=== PATIENT | female | born 1995 | race Caucasian/White ===

== ENCOUNTER → 2017-11-16 14:11 | Outpatient (CLI) | payer OTHER, SELFPAY ==
--- NOTE | 2017-11-16 14:22 | US_ITS ---
STUDY: ULTRASOUND BREAST - LEFT REASON FOR EXAM: Female, 22 years old. Palpable lump left breast. The patient is 29 weeks . TECHNIQUE: Axial and longitudinal images of the LEFT breast were performed with a high resolution ultrasound transducer. COMPARISON: None. FINDINGS: LEFT Breast: The palpable abnormality corresponds to a 1.7 cm x 2.2 cm x 0.8 cm well-defined hypoechoic solid nodule at the 4:00 position of the breast at 3 cm from the nipple. Mild increased echo texture is seen in the midportion of the nodule. This is suggestive of a lymph node. A follow-up sonogram is recommended in 4 months. US/Breast Limited Unilateral IMPRESSION: The palpable abnormality corresponds to a well-defined nodule as described. This has the appearance of a lymph node. A follow-up sonogram in 4 months is recommended. ASSESSMENT CATEGORY: BIRADS Category 3: Probably Benign - Short-Interval Follow-up Suggested. A letter regarding these results will be sent to the patient by the facility within 30 days. Electronically Signed: Efren Walsh MD at 15:01 EST Tel [phone], Service support ,
== END ==
PROVIDERS: Family Provider Family Medicine; PCP Family Medicine; Visit Provider Obstetrics & Gynecology
DX: N63.23 Unspecified lump in the left breast, lower outer quadrant (principal)
CPT/HCPCS: 76642

== ENCOUNTER 2017-12-21 08:20 | Emergency (ER) | payer OTHER, SELFPAY ==
[2017-12-21 08:22] VITALS: BP 117/68; PULSE 89; RESP 17; TEMP 36.8; O2SAT 95; BMI 28.8
[2017-12-21] MEDS: HYDROCODONE/APAP 7.5-325/15ML 15 ML UDC PO (09:34)
[2017-12-21] MEDS: Diphth,Pertuss(Acell),Tet Vac 0.5 ML Vial IM (09:34)
[2017-12-21] MEDS: Lidocaine/Epi/Tetracaine 50 ML 1 APPLIC TOPICAL (09:35)
--- NOTE | 2017-12-21 11:38 | ED.DCSUM_ITS ---
- ER Visit Summary Date of Service: 12/21/17 Chief Complaint: Fall History of Present Illness: The patient is a [address] Cachorro Mcpherson and Dr. Banerjee. She is a at 33 weeks . 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 She suffered a laceration to her face. She reports that she has pain here that 6 out of 10 severity. She denies any back pain. No loss of consciousness. No blow to the abdomen. No abdominal pain. No vaginal bleeding. Normal movement. Physical Examination: Vitals: Stable. Afebrile. Head: 4 cm laceration just below her nose that begins underneath the septum and extends over beneath her left nares and around the left side of her nose. Neck: No vertebral tenderness. Full ROM without difficulty. Cleared by NEXUS criteria. Back: No vertebral tenderness. General: A&O x 3. NAD. Cardiovascular exam: Regular rate and rhythm, no murmur, rub or gallop. Respiratory exam: Chest nontender. No crepitus. Clear to auscultation bilaterally. No wheezes or stridor. Abdominal exam: Soft, nontender, nondistended, normal bowel sounds. No pain in RUQ or LUQ specifically. No peritoneal signs. Gravid uterus. Extremity: Atraumatic. No pain with range of motion. Emergency Department Course and Treatment: heart tones were 160. Patient was treated with Lortab p.o. and Adacel IM. She had her wound anesthetized and repaired she tolerated it well. Treatment Plan: Patient was discussed with Dr. Banerjee. As long as she is asymptomatic and without abdominal pain, vaginal bleeding, normal movement she can follow-up as previously scheduled. Call him if she is having any problems. Instructed to follow-up Dr. Cachorro Mcpherson as needed. Return to the emergency department for any worsening symptoms. Disposition: To home in improved and stable condition. Impression: 1. Laceration to face, 4 7 m, repaired. 2. Second trimester . Procedure note: Wound was cleansed with chlorhexidine soap. Anesthetized with 1% lidocaine without epinephrine. Copiously irrigated with normal saline. Wound was explored there is no foreign material present. It was closed with 5 simple interrupted 5- 0 rapid Vicryl sutures. The patient tolerated it well. This note was generated with Dragon dictation software. It may contain incorrect words, spelling, and punctuation that were not noted in review of the chart prior to signing ED Disposition - Plan for ED Patient: Disposition: Home or Assisted Living Chief Complaint: Other, Pain/Inj Instructions: ED Laceration Facial Sutr Tape Referrals: Cachorro Mcpherson [Primary Care Provider] - As Needed Raoul Banerjee MD [STAFF PHYSICIAN] - Keep Melchor appointment
[2017-12-21 11:46] VITALS: BP 118/67; PULSE 59; RESP 16; O2SAT 98
== END 2017-12-21 11:49 | disposition home or self-care (01) ==
PROVIDERS: Emergency Provider Emergency Medicine; Family Provider Family Medicine; PCP Family Medicine
DX: O26.892 Other specified pregnancy related conditions, second trimester (principal); S01.81XA Laceration without foreign body of other part of head, initial encounter; Z3A.33 33 weeks gestation of pregnancy; W18.30XA Fall on same level, unspecified, initial encounter; Y93.89 Activity, other specified; Y92.89 Other specified places as the place of occurrence of the external cause; Y99.8 Other external cause status
CPT/HCPCS: 12013; 90715; 99283

== ENCOUNTER 2018-01-14 17:45 | Outpatient (CLI) | payer OTHER, SELFPAY ==
[2018-01-14 18:03] VITALS: BMI 29.0
[2018-01-14 18:34] LABS: ROM Internal Control Test YES-OK TO RESULT pt. (Internal QC); ROM Patient Test Negative (Negative)
--- NOTE | 2018-01-15 07:52 | OB.TRI.NOTE ---
History of Present Illness Date of Service: 01/14/18 Was patient seen by the physician?: No Reason For Visit: RULE OUT LABOR Date of Service: 01/14/18 Final LUIS FERNANDO: 02/01/18 Final LUIS FERNANDO Source: US <20 weeks Gestational age: 37 Weeks and 4 Days History of Present Illness: Reports two episodes of possible leakage of fluid from the vagina Home Medications Medication Instructions Recorded Vits [Prenatabs FA] 1 tablet PO DAILY 12/21/17 Allergies No Known Allergies Allergy (Verified 12/21/17 08:21) Physical Exam General: Alert, Oriented x3, Cooperative, No apparent distress Cardiovascular: Regular rate, Regular Rhythm Lungs: Clear to auscultation, Normal air movement Abdomen: Soft, Non Tender, Non-Distended, Gravid, Appropriate for Gestational Age Extremities:: No edema Estimated gestational size: Appropriate for gestational size Presentation: Cephalic Cervix Dilation (cm): 3 Station: -3 Effacement (%): 50 NST - FHR Rate Baby A Baseline: 130s Variability:: Moderate Accelerations:: 15 x 15 Decelerations:: None NST Reactive:: Yes, Appropriate for gestational age FHR Category:: Category I Uterine Activity:: rare Impression/Plan ROM + testing negative and no signs of leaking amniotic fluid. Cervix unchanged from office exam. Will followup in office.
== END 2018-01-14 18:45 | disposition home or self-care (01) ==
LOC: WPOUT 17:56 → WP 01-16 12:43
PROVIDERS: Family Provider Family Medicine; PCP Family Medicine; Visit Provider Obstetrics & Gynecology
DX: O26.892 Other specified pregnancy related conditions, second trimester (principal); Z3A.20 20 weeks gestation of pregnancy
CPT/HCPCS: 59025; 59050; 84112; 99218; G0378

== ENCOUNTER 2018-01-26 07:07 | Inpatient (IN) | payer OTHER, SELFPAY ==
[2018-01-26] VITALS (18 sets, daily range): BP systolic 97–150; BP diastolic 49–79; PULSE 79–114; RESP 16–20; TEMP 36–36.6; O2SAT 96–100; BMI 29.7
[2018-01-26] MEDS: Lactated Ringers 1,000 ML 50 ML IV ×2 (07:50→08:54)
[2018-01-26 08:15] LABS: Hematocrit 32.5 % (37-47); Mean Corp Hgb Conc 33.8 g/gl (32-36); Mean Corpuscular Hgb 28.5 pg (27.0-32.0); Mean Corpuscular Volume 84.2 fL (81-99); Mean Platelet Vol. 11.7 fl (6.2-12.0); Platelet Count 205 K/mm3 (150-450); RBC Distribution Width CV 14.3 % (11.6-14.6); RBC Distribution Width SD 42.6 fl (35.1-43.9); Red Blood Count 3.86 M/mm3 (4.2-5.4); White Blood Count 11.9 K/mm3 (4.4-11.0)
[2018-01-26 08:18] LABS: Scan Indicated on CBC? Y/N NO
[2018-01-26] MEDS: Oxytocin 30 units/NS 500 ml 30 UNITS/500 ML IV.SOLN IV (08:59)
[2018-01-26] MEDS: Cefazolin 2 GM in 0.9% Normal Saline 100 ML IV (10:49)
[2018-01-26] MEDS: Sodium Citrate/Citric Acid 30 ML UDC PO (10:50)
[2018-01-26] MEDS: Ketorolac 30 MG/ML Syringe IV ×3 (11:30→23:47)
--- NOTE | 2018-01-26 12:20 | PCM.OB.CSR ---
- Problem List (1) Labor presentation, breech Status: Acute Qualifiers: Fetus number: single or unspecified fetus Qualified Code(s): O32.1XX0 - Maternal care for breech presentation, not applicable or unspecified Delivery Classification: MAINOR Final LUIS FERNANDO: 02/02/18 Final LUIS FERNANDO Source: US <20 weeks Gestational age: 39 Weeks and 0 Days Indications for : Breech Description of Procedure: Presented for induction of labor at 39 weeks. Once at 5 cm determined to be in breech presentation. Primary low transverse section performed without complication. Normal appearing uterus, ovaries, and fallopian tubes. Live female in complete breech presentation. weight 7lb2oz. Apgars 8/9. Amniotic Membrane Rupture Type: Artificial Amniotic Fluid Description: Clear Placenta Disposition: [facility] Drain: So to straight drain Fluids Replaced: 1500cc Cord Entanglement: None Cord Vessel Description: 3 Vessels Esitmated Blood Loss (ml): 400cc Infant Gender: Female (1 minute): 8 (5 minute): 9 Delayed cord clamping: Yes Pre-op Antibiotic Given: Ancef 2 grams IV x1 Pt instructed on risks of surgery: Bleeding, Infection, Injury to surrounding structure(s) including bowel and bladder Complications: None - Admit VTE Documentation VTE Present on Admission: No VTE Mechan Device Prophylaxis: SCD's VTE Pharm Prophylaxis ordered?: No
--- NOTE | 2018-01-26 15:15 | CPS ---
room is full of people, nursing to start
[2018-01-26] MEDS: Cefazolin 1 GM/50 ML BAG IV (18:53)
[2018-01-26] MEDS: Lactated Ringers 1,000 ML 100 ML IV ×2 (19:30)
[2018-01-27] VITALS (11 sets, daily range): BP systolic 102–107; BP diastolic 47–64; PULSE 82–101; RESP 16–18; TEMP 36.5–36.7; O2SAT 95–99
[2018-01-27] MEDS: Cefazolin 1 GM/50 ML BAG IV (02:59)
[2018-01-27] MEDS: Lactated Ringers 1,000 ML 100 ML IV (05:39)
[2018-01-27] MEDS: Ketorolac 30 MG/ML Syringe IV ×3 (05:41→18:10)
[2018-01-27 06:54] LABS: Hematocrit 27.5 % (37-47); Hemoglobin 9.2 g/dl (12.0-15.0); Mean Corp Hgb Conc 33.5 g/gl (32-36); Mean Corpuscular Hgb 28.1 pg (27.0-32.0); Mean Corpuscular Volume 84.1 fL (81-99); Mean Platelet Vol. 10.7 fl (6.2-12.0); Platelet Count 184 K/mm3 (150-450); RBC Distribution Width CV 14.7 % (11.6-14.6); RBC Distribution Width SD 45.2 fl (35.1-43.9); Red Blood Count 3.27 M/mm3 (4.2-5.4); White Blood Count 11.7 K/mm3 (4.4-11.0)
[2018-01-27 06:57] LABS: Scan Indicated on CBC? Y/N NO
--- NOTE | 2018-01-27 08:09 | PCM.PN.OB ---
Patient Problems: Active and Suspected Problems Labor presentation, breech (Acute) Subjective: Some incisional soreness. Bleeding light. Tolerating PO well. So in place. Objective: Afeb VSS Hgb appropriate on POD#1. - Physical Exam General: Alert, Oriented x3, Cooperative, No apparent distress Lungs: Clear to auscultation, Normal air movement Cardiovascular: Regular rate, Regular Rhythm Abdomen: Soft, Non Tender, Non-Distended, - - Incision dressing dry. Extremities: No edema, No Calf Tenderness Skin: No rashes Neurological: Neuro grossly intact Psych/Mental Status: Normal Affect Comment: Lochia light Vital Signs Temp Pulse Resp BP Pulse Ox 98.0 F 90 16 102/52 L 99 01/27/18 03:00 01/27/18 06:00 01/27/18 06:00 01/27/18 03:00 01/27/18 06:00 Oxygen Delivery Method Room Air Weight: 179 lb 0.246 oz Body Mass Index (BMI) 29.7 Intake and Output for Last 24 Hours 01/25/18 01/26/18 01/27/18 23:59 23:59 23:59 Intake Total 2708 / 2708 2443 / 2443 Output Total 1920 / 1920 2150 / 2150 Balance 788 / 788 293 / 293 Laboratory Tests Past 24 Hrs 01/26/18 01/26/18 01/27/18 07:50 07:50 06:30 WBC 11.9 H 11.7 H RBC 3.86 L 3.27 L Hgb 11.0 L 9.2 L Hct 32.5 L 27.5 L MCV 84.2 84.1 MCH 28.5 28.1 MCHC 33.8 33.5 RDW 14.3 14.7 H RDW Differential 42.6 45.2 H Plt Count 205 184 MPV 11.7 10.7 Blood Type A POSITIVE Antibody Screen NEGATIVE Medical Necessity - Tobacco Use Smoking Status: Former smoker Assessment/Plan Active and Suspected Problems Labor presentation, breech (Acute) Doing well on POD#1. Continue routine PO care.
--- NOTE | 2018-01-27 08:20 | DCINST_ITS ---
Discharge Diet: No Restrictions Discharge Activity: Return to Normal Activity, May Not Drive, May not drive while taking narcotic pain medications., May Shower Return to work on:: 03/27/18 May resume sexual activity in: 4-6 weeks Call your doctor if your incision/area has: Sudden Increased Bleeding, Increased Pain/ Swelling, Increased Redness, Foul Smelling Discharge, Swelling at the incision site Call your doctor if you observe: Fever of 101 or Higher, Inability to urinate, Inability to have a bowel movement, Using more than one pad per hour, Shortness of breath, Chest pain, Calf discomfort, Uncontrolled pain Remove Dressing in (days):: 2 Cleanse incision/area with: Soap & Water Additional Instructions: If you experience any of the following, contact your healthcare provider. * Bleeding that soaks a pad every hour for 2 hours * Fever 100.4 or higher * Unrelieved incision or abdominal pain * Swelling, redness, discharge or bleeding from your incision or episiotomy site * Your incision begins to separate * Problems urinating (including inability to urinate or burning while urinating) . * Visual changes * Severe headache * Flu-like symptoms * Pain or redness in one of both of your breasts * Pain, warmth, tenderness or swelling in your legs, especially the calf area * Frequent nausea and vomiting * Symptoms of depression or anxiety If you experience any of the following, call 911 or go to the nearest Emergency Room. * Chest pain * Problems breathing * Seizure activity * Partial or complete paralysis of a body part, slurred speech, weakness or drooping of the face, or a sudden inability to walk or hold your balance Allergies/Adverse Reactions: Allergies No Known Allergies Allergy (Verified 01/26/18 08:07) Medications to take at Discharge Vits [Prenatabs FA ] 1 tablet PO DAILY 12/21/17 Ibuprofen [Motrin] 800 mg PO TID PRN PRN #30 tab 01/27/18 Oxycodone [Oxyir] 5 - 10 mg PO Q4H PRN PRN 7 Days #30 tab 01/27/18 The following prescriptions were given: Oxycodone [Oxyir] 5 - 10 mg PO Q4H PRN PRN 7 Days #30 tab PRN Reason: Mod-Severe Pain () Ibuprofen [Motrin] 800 mg PO TID PRN PRN #30 tab PRN Reason: pain or cramping Follow-Up: Call to make an appointment with your doctor for an incision check in 1-2 weeks. You will also need a 6 week post- follow up appointment. Please Follow Up With: Raoul Banerjee MD When: one week Primary Care Physician: Cachorro Mcpherson [Primary Care Provider] - Proposed Discharge Date: 01/28/18
--- NOTE | 2018-01-27 08:35 | OP.PCM_ITS ---
Problem List (1) Labor presentation, breech Status: Acute Qualifiers: Fetus number: single or unspecified fetus Qualified Code(s): O32.1XX0 - Maternal care for breech presentation, not applicable or unspecified Report of Operation Date of Procedure: 01/26/18 Pre-Operative Diagnosis: Breech presentation in labor Post-Operative Diagnosis: same Surgery/Procedure Performed:: Primary Low Transverse Section Description of Surgical Findings:: At 5 cm dilated with fetus in complete breech presentation. Normal appearing uterus, fallopian tubes, ovaries. Baby in right sacrum anterior position. weight 7lb2oz. Apgars 8/9. Normal appearing placenta. Amniotic fluid clear. chest painting and sealing supervisor: Lay Kolb Type of Anesthesia:: Spinal Anesthesiologist: Anne Black Specimen's removed: none Drains: arriaga Estimated Blood Loss (mL): 400 Fluids Replaced: 1500cc LR Description of Procedure: Beth was taken to the OR with IV running. Indications, risks, and postoperative expectations were discussed. heart rate and heart rate pattern normal prior to delivery. She was given two grams of Ancef intravenously for surgical prophylaxis. SCDs were in place and operational from surgery through recovery. Spinal anesthesia was given without complication. A arriaga catheter was placed. She was prepped and draped in the supine position with a leftward tilt. Once anesthesia was found to be adequate a Pfannesteil incision was made about 2 cm above the level of the symphysis pubis. The underlying subcutaneous tissue was dissected to the level of the fascia with sharp and blunt dissection. The fascia was then incised in the midline and this incision was extended bilaterally using the willoughby scissors. The rectus muscles were then dissected off the fascia. The rectus muscles were then in the midline, the peritoneum identified and entered bluntly. Once entered the peritoneal defect was extended using blunt retraction. A bladder blade was then placed. A bladder flap was then created and the bladder blade replaced. The lower uterine segment was then incised and once the cavity entered this defect was extended using blunt lateral and superior traction. The breech was then delivered followed by the body, shoulders, and then verteex. The baby's nose and mouth were then suctioned with a bulb suction. Delayed cord clamping was employed. The baby was dried and a vigorous cry was noted within the first minute. The cord was then clamped and cut. The baby was then handed to the waiting nursing staff for evaluation. The placenta was then delivered manually. The uterus was exteriorized and cleared of all clot and membranes. The uterine incision was then repaired in two layers with #1 Vicryl suture. The posterior cul de sac and gutters were cleared of all blood and fluid. The uterus was returned to the abdomen. The uterine incision was reinspected and found to be hemostatic. The peritoneum was closed with a running stitch of 2-0 Vicryl. The rectus muscles reapproximated with interrupted sutures of 0-Vicryl. The fascia was closed with a running stitch of #1 Stratofix suture. The subcutaneous tissue was closed with 2-0 Vicryl. The skin was closed with a subcuticular stitch of 4-0 Monocryl. Sponge, lap, needle, and instrument counts were correct. Beth was taken to the recovery room in stable condition. Grafts/Implants Used: none - Complications none - Admit VTE Documentation VTE Present on Admission: No VTE Mechan Device Prophylaxis: SCD's VTE Pharm Prophylaxis ordered?: No
--- NOTE | 2018-01-27 12:44 | PCM.DC.SUM ---
Discharge Date and Diagnosis - Problem List Patient Problems: Active and Suspected Problems Labor presentation, breech (Acute) Date of Admission: 01/26/18 Date of Discharge: 01/28/18 - Primary Discharge Diagnosis Active and Suspected Problems Labor presentation, breech (Acute), S/P primary low transverse section Hospital Course and Treatment Consultations 01/26/18 07:21 Consult: Anesthesia Routine Comment: Reason For Exam: LABOR Operations: - - Low transverse section Procedures: - - spinal anesthesia Summary of Care Provided: The patient is a 22 year old F [presented for elective induction of labor. At 5 cm dilated determined that fetus was in breech presentation. After counselling decision made for delivery by section. This was perfomed without complication. Post operative course was unremarkable. Discharged home on POD#2.] Discharge Diet: No Restrictions Discharge Activity: Return to Normal Activity, May Not Drive, May not drive while taking narcotic pain medications., May Shower Return to work on:: 03/27/18 May resume sexual activity in: 4-6 weeks Call your doctor if your incision/area has: Sudden Increased Bleeding, Increased Pain/ Swelling, Increased Redness, Foul Smelling Discharge, Swelling at the incision site Call your doctor if you observe: Fever of 101 or Higher, Inability to urinate, Inability to have a bowel movement, Using more than one pad per hour, Shortness of breath, Chest pain, Calf discomfort, Uncontrolled pain Remove Dressing in (days):: 2 Cleanse incision/area with: Soap & Water Home Medications: Medications to take at Discharge Vits [Prenatabs FA ] 1 tablet PO DAILY 12/21/17 Ibuprofen [Motrin] 800 mg PO TID PRN PRN #30 tab 01/27/18 Oxycodone [Oxyir] 5 - 10 mg PO Q4H PRN PRN 7 Days #30 tab 01/27/18 Following Prescrptions Were Given to Patient: Oxycodone [Oxyir] 5 - 10 mg PO Q4H PRN PRN 7 Days #30 tab PRN Reason: Mod-Severe Pain (4-1010) Ibuprofen [Motrin] 800 mg PO TID PRN PRN #30 tab PRN Reason: pain or cramping Primary Care Physician: Cachorro Mcpherson [Primary Care Provider] - Please Follow Up With: Raoul Banerjee MD When: one week Disposition: Home Minutes spent on discharge:: 15 Patient Condition:: Good Medical Necessity - Tobacco Use Smoking Status: Former smoker Meaningful Use Info Meaningful Use Diagnoses (Choose all that apply): None applicable
[2018-01-27] MEDS: Prenatal Vits Tablet 1 TABLET PO (14:26)
[2018-01-27] MEDS: oxyCODONE 5 MG Tablet PO ×3 (14:26→21:28)
[2018-01-27] MEDS: 0.9% Saline Lock 10 ML Syringe IV (18:10)
[2018-01-27] MEDS: Senna/Docusate Sodium 1 Tablet PO (18:13)
[2018-01-28] MEDS: Ketorolac 30 MG/ML Syringe IV (00:55)
[2018-01-28] MEDS: 0.9% Saline Lock 10 ML Syringe IV ×2 (00:55→07:06)
[2018-01-28] MEDS: Ibuprofen 600 MG Tablet PO ×3 (07:13→22:22)
[2018-01-28 08:03] VITALS: BP 118/71; PULSE 80; RESP 18; TEMP 36.4; O2SAT 97
--- NOTE | 2018-01-28 10:41 | PN.OBGYN_ITS ---
Patient Problems: Active and Suspected Problems Labor presentation, breech (Acute) Subjective: Postoperative day #2 status post primary Patient without complaints. Tolerating diet well. Positive flatus. Breast- feeding going well. Considering discharge home later today if breast-feeding continues to go well. - Physical Exam Vital Signs AF, VSS Temp Pulse Resp BP Pulse Ox 97.6 F L 80 18 118/71 97 01/28/18 08:03 01/28/18 08:03 01/28/18 08:03 01/28/18 08:03 01/28/18 08:03 Oxygen Delivery Method Room Air Weight: 179 lb 0.246 oz Body Mass Index (BMI) 29.7 Intake and Output for Last 24 Hours 01/26/18 01/27/18 01/28/18 23:59 23:59 23:59 Intake Total 2708 / 2708 2776 / 2776 Output Total 1920 / 1920 4100 / 4100 Balance 788 / 788 -1324 / -1324 Wound is clean, and intact with no new drainage. Good urine output. Medical Necessity - Tobacco Use Smoking Status: Former smoker Assessment/Plan Active and Suspected Problems Labor presentation, breech (Acute) Doing well postoperative day #2 status post primary . Will release to home later today. Routine instructions given. Follow-up in 1-[address] Banerjee.
[2018-01-28] MEDS: Prenatal Vits Tablet 1 TABLET PO (11:00)
[2018-01-28] MEDS: Senna/Docusate Sodium 1 Tablet PO (13:41)
[2018-01-28 14:00] VITALS: BP 113/68; PULSE 82; RESP 18; TEMP 36; O2SAT 97
[2018-01-28] MEDS: oxyCODONE 5 MG Tablet PO ×2 (18:57→23:17)
[2018-01-28 20:10] VITALS: BP 113/68; PULSE 82; RESP 16; TEMP 36.6; O2SAT 97
[2018-01-29 02:03] VITALS: BP 113/58; PULSE 70; RESP 18; TEMP 36; O2SAT 100
[2018-01-29] MEDS: Ibuprofen 600 MG Tablet PO ×2 (05:25→11:39)
[2018-01-29 07:50] VITALS: BP 125/57; PULSE 80; RESP 16; TEMP 36.6; O2SAT 98
--- NOTE | 2018-01-29 09:38 | PCM.PN.OB ---
Patient Problems: Active and Suspected Problems Labor presentation, breech (Acute) Subjective: Patient without complaints. Doing well. Decided to stay another day. - Physical Exam Vital Signs Temp Pulse Resp BP Pulse Ox 97.9 F 80 16 125/57 H 98 01/29/18 07:50 01/29/18 07:50 01/29/18 07:50 01/29/18 07:50 01/29/18 07:50 Oxygen Delivery Method Room Air Weight: 179 lb 0.246 oz Body Mass Index (BMI) 29.7 Intake and Output for Last 24 Hours 01/27/18 01/28/18 01/29/18 23:59 23:59 23:59 Intake Total 2776 / 2776 Output Total 4100 / 4100 Balance -1324 / -1324 Medical Necessity - Tobacco Use Smoking Status: Former smoker Assessment/Plan Active and Suspected Problems Labor presentation, breech (Acute) Postoperative day #3 Doing well. Will release to home with routine instructions.
[2018-01-29] MEDS: Prenatal Vits Tablet 1 TABLET PO (11:10)
== END 2018-01-29 12:05 | disposition home or self-care (01) | DRG 766 ==
PROVIDERS: Admitting Provider Obstetrics & Gynecology; Family Provider Family Medicine; PCP Family Medicine; Visit Provider Obstetrics & Gynecology
DX: O32.1XX0 Maternal care for breech presentation, not applicable or unspecified (principal); Z3A.39 39 weeks gestation of pregnancy; Z37.0 Single live birth
CPT/HCPCS: 59025; 59050; 85027; 86850; 86900; 99218; J7120; A4216; G0378; J2405

== ENCOUNTER 2020-08-05 13:45 | Inpatient (IN) | payer MEDICAID, SELFPAY ==
[2018-01-26 07:59] VITALS: BMI 29.7
[2020-08-05] VITALS (46 sets, daily range): BP systolic 92–208; BP diastolic 6–163; PULSE 85–120; RESP 18; TEMP 36.4–37.6; O2SAT 93–100; BMI 31.9
[2020-08-05 12:14] LABS: ROM Internal Control Test YES-OK TO RESULT pt. (Internal QC); ROM Patient Test Negative (Negative)
[2020-08-05] MEDS: Lactated Ringers 1,000 ML 50 ML IV (14:10)
[2020-08-05 14:36] LABS: Absolute Lymphocyte Count 1.06 X10^3/uL (0.83-4.51); Absolute Neutrophil Count 12.5 X10^3/uL (2.0-7.7); Basophil# 0.02 X10^3/uL; Basophil% 0.1 % (0-1); Eosinophil# 0.01 X10^3/uL; Eosinophils% 0.1 % (0-5); Hemoglobin 10.4 g/dL (12.0-15.0); Lymphocyte # 1.06 X10^3/ul (4.0); Lymphocyte % 7.3 % (19-41); Mean Corp Hgb Conc 32.5 g/dL (32-36); Mean Corpuscular Hgb 26.9 pg (27.0-32.0); Mean Corpuscular Volume 82.9 fL (81-99); Mean Platelet Vol. 11.7 fl (6.2-12.0); Monocyte# 0.88 X10^3/uL; NRBC Flagged by Analyzer 0 % (0-5); Neutrophil # 12.52 X10^3/uL (2.7-7.7); Neutrophil % 85.9 % (47-70); Platelet Count 254 K/mm3 (150-450); RBC Distribution Width CV 14.3 % (11.6-14.6); RBC Distribution Width SD 42.7 fl (35.1-43.9); Red Blood Count 3.86 M/mm3 (4.2-5.4); White Blood Count 14.6 K/mm3 (4.4-11.0)
[2020-08-05] MEDS: Lactated Ringers 500 ML 999 ML IV (15:00)
--- NOTE | 2020-08-05 15:18 | PCM.HP.OB ---
History Date of Admission: 08/05/20 Final LUIS FERNANDO: 08/14/20 Final LUIS FERNANDO Source: US <20 weeks Gestational age: 38 Weeks and 5 Days History of this : This is a 24 year-old, G [], P [], at 38 weeks gestational age. Medical History: Medical History (This Medical Record has been edited. Action required.) Anxiety F41.9 Surgical History: Surgical History (This Medical Record has been edited. Action required.) Previous section Z98.891 Allergies No Known Allergies Allergy (Verified 08/05/20 11:49) Home Medications: Home Medications Vits [Prenatabs FA ] 1 tablet PO DAILY 12/21/17 Ferrous Sulfate [Iron] 08/05/20 Smoking Status: Former smoker Alcohol: None Number of Fetus(es): 1 NST - FHR Rate Baby A Baseline: 130 Variability:: Moderate Accelerations:: 15 x 15 Decelerations:: Variable Uterine Activity:: Q 3-4 minutes History Past Pregnancies: Past Pregnancies Delivery Date Name GA/ Weeks Outcome Route Wt Sex Labor Length Anesthesia Delivery Location Provider FOB Labs: See [facility] H&P Physical Exam Vitals: Vital Signs Temp Pulse BP 98.6 F 90 110/74 08/05/20 11:39 08/05/20 15:13 08/05/20 15:13 General: Alert, Oriented x3 Abdomen: Soft, Non Tender, Non-Distended, Gravid Neurological: Cranial nerves II-XII grossly intact GENETIC COUNSELOR: Normal external genitalia Estimated gestational size: Appropriate for gestational size Presentation: Cephalic Cervix Dilation (cm): 5 - AROM clear fluid Station: -1 Effacement (%): 90 Assessment/Plan This is a 24 year-old, at 38&5 weeks gestational age. Admit to L&D TOLAC - patient counseled extensively during the & risks reviewed again today and she wishes to proceed. Patient declines a repeat . Pain - epidural COVID negative GBS negative Routine care EFW - less than 4500g, patient with adequate pelvis
[2020-08-05 15:21] LABS: Bedside Glucose 85 mg/dL (70-110)
[2020-08-05] MEDS: fentaNYL-bupivacaine (epidural) 100 ML BAG EPIDURAL (15:29)
--- NOTE | 2020-08-05 16:35 | OP.PCM_ITS ---
Vaginal Delivery Maternal Presentation: Active Labor Method of Induction: Amniotomy Amniotic Membrane Rupture Type: Artificial Amniotic Fluid Description: Clear Final LUIS FERNANDO: 08/14/20 Gestational age: 38 Weeks and 5 Days Date of Procedure: 08/05/20 Pre-Operative Diagnosis: (1) Labor (2) Desires TOLAC Post-Operative Diagnosis: (1) Labor (2) Successful TOLAC Surgery/ Procedure Performed: Spontaneous Vaginal Delivery Type of Anesthesia: Epidural Description of Procedure: Patient prepped & draped when C/C/+3. She pushed to deliver head. head gently guided to allow delivery of anterior & posterior shoulders. No excess traction placed on the head. Body delivered & infant placed on maternal abdomen. 3VC clamped & cut in delayed fashion. Placenta delivered with gentle traction. Good uterine tone obtained. Presentation: MARIA ANTONIA Placental Delivery Description: Expressed Placenta Disposition: [facility] Cord Vessel Description: 3 Vessels Cord Entanglement: None Estimated Blood Loss: 400ml Infant A gender: Female - [place] (1 minute): 8 (5 minute): 9 Episiotomy Description: None Laceration: None Medications given after delivery: IV Pitocin Complications: None
[2020-08-05] MEDS: Methylergonovine 0.2 MG/ML Ampul IM (17:20)
[2020-08-05] MEDS: Oxytocin 30 units/NS 500 ml 30 UNITS/500 ML IV.SOLN 334 UNITS IV (17:20)
[2020-08-05] MEDS: Ondansetron 4 MG/2 ML Vial IV (18:17)
[2020-08-05 18:20] LABS: Bedside Glucose 98 mg/dL (70-110)
--- NOTE | 2020-08-05 20:02 | NURSING ---
attempted to flush SL but unable to flush. Saline lock left intact.
[2020-08-05] MEDS: Ibuprofen 600 MG Tablet PO (21:21)
[2020-08-05] MEDS: Acetaminophen 500 MG Tablet 1000 MG PO (22:06)
--- NOTE | 2020-08-05 22:56 | NURSING ---
pt complaining of cramping pain 03/12 after , pt requested motrin, pt medicated with motrin. An hour later pt stated pain was not any better pt offered tylenol and heating pad, pt medicated with tylenol and given heating pad. Encouraged pt to get up to pee, multiple attempts to get pt out of bed with assistance of nurse to go to bathroom. Pt stated it was too painful to get up, pt offered bed tarango, pt stated she would use a bedpan. Pt placed on bedpan and encouraged to pee, pt advised to relax as much as possible to pee, pt could not pee. This nurse then suggested a straight cath and pt stated she was ok with it, straight cathed pt for an output of 2000ml, pt stated she had no more pain and was then able to get up and walk around room. Pt then encouraged to attempt to pee at least once an hour even if she does not feel the urge to pee. Pt stated she understood.
[2020-08-06] VITALS: BP 97/41; PULSE 74; RESP 16; TEMP 36.5
[2020-08-06 04:00] VITALS: BP 108/45; PULSE 92; RESP 16; TEMP 36.6
[2020-08-06 06:00] LABS: Bedside Glucose 101 mg/dL (70-110)
--- NOTE | 2020-08-06 08:43 | PN.OBGYN_ITS ---
Subjective: Doing well. Ambulating and voiding without difficulty. Tolerating a regular diet without nausea or vomiting. She denies lightheadedness, dizziness, chest pain, shortness of breath, leg pain. Lochia normal. Breast-feeding going well. She desires to go home today. - Physical Exam Vitals/I&O's: Vital Signs Temp Pulse Resp BP Pulse Ox 98 F 92 16 108/45 L 100 08/06/20 04:00 08/06/20 04:00 08/06/20 04:00 08/06/20 04:00 08/05/20 16:35 Oxygen Delivery Method Room Air Weight: 186 lb Body Mass Index (BMI) 31.9 Intake and Output for Last 24 Hours 08/04/20 08/05/20 08/06/20 23:59 23:59 23:59 Intake Total 2321.60 / 2321.60 Output Total 2500 / 2500 400 / 400 Balance -178.40 / -178.40 -400 / -400 General: Alert, No apparent distress HEENT: Atraumatic Abdomen: Non-Distended Extremities: No edema Neurological: Neuro grossly intact Psych/Mental Status: Normal Affect, Appropriate Laboratory Results 08/05/20 11:45: Vag Amniotic Fld Detect Negative 08/05/20 14:10: WBC 14.6 H, RBC 3.86 L, Hgb 10.4 L, Hct 32.0 L, MCV 82.9, MCH 26.9 L, MCHC 32.5, RDW Std Deviation 42.7, RDW Coeff of Kaci 14.3, Plt Count 254, MPV 11.7, Immature Gran % (Auto) 0.600, Neut % (Auto) 85.9 H, Lymph % (Auto) 7.3 L, Cowley % (Auto) 6.0, Eos % (Auto) 0.1, Baso % (Auto) 0.1, Absolute Neuts (auto) 12.5 H, Absolute Lymphs (auto) 1.06, Nucleated RBC % 0 08/05/20 14:10: Blood Type A POSITIVE, Antibody Screen NEGATIVE 08/05/20 15:14: POC Glucose 85 08/05/20 18:13: POC Glucose 98 08/06/20 05:34: POC Glucose 101 Current Medications Acetaminophen (Acetaminophen 500 Mg Tablet) 1,000 mg PO Q8H PRN PRN PRN Reason: Pain Score 1-3 Last Admin: 08/05/20 22:06 Dose: 1,000 mg Documented by: Bisacodyl (Bisacodyl 10 Mg Suppository) 10 mg RECTAL UD PRN PRN Reason: If no BM Dibucaine (Dibucaine 30 Gm Tube) 1 applic TOPICAL TID PRN PRN; Protocol PRN Reason: Discomfort Hydrocortisone (Hydrocortisone 2.5% Crm) 1 applic TOPICAL TID PRN PRN; Protocol PRN Reason: Discomfort Ibuprofen (Ibuprofen 600 Mg Tablet) 600 mg PO Q6H PRN PRN PRN Reason: Pain Score 1-3 Last Admin: 08/05/20 21:21 Dose: 600 mg Documented by: Methylergonovine Maleate (Methylergonovine 0.2 Mg/Ml Ampul) 0.2 mg IM X1 PRN PRN Reason: Excess bleeding/uterine atony Last Admin: 08/05/20 17:20 Dose: 0.2 mg Documented by: Ondansetron HCl (Ondansetron 4 Mg/2 Ml Vial) 4 mg IV Q4H PRN PRN PRN Reason: Nausea Oxycodone HCl (Oxycodone 5 Mg Tablet) 5 - 10 mg PO Q4H PRN PRN PRN Reason: Pain Score 4-10 Senna/Docusate Sodium (Senna/Docusate Sodium 1 Tablet) 1 - 2 tablet PO DAILY PRN PRN PRN Reason: Constipation Simethicone (Simethicone 80 Mg Tablet) 80 mg PO PCHS PRN PRN Reason: Indigestion/Stomach pain Sodium Chloride (0.9% Saline Lock 10 Ml Syringe) 5 - 15 ml IV UD PRN PRN Reason: SALINE FLUSH Medical Necessity - Tobacco Use Smoking Status: Former smoker Assessment/Plan Patient is day 1 from a vaginal after prior . She is doing well. She desires to go home today. Meeting all milestones for discharge. Discharge instructions reviewed.
--- NOTE | 2020-08-06 08:44 | DCINST_ITS ---
Discharge Diet: No Restrictions Discharge Activity: May Shower, May Take a Tub Bath May resume sexual activity in: 6 weeks Ice area for (Minutes): 15 Weight Bearing Status: Weight bearing as tolerated Call your doctor if you observe: Fever of 101 or Higher, Inability to urinate, Inability to have a bowel movement, Using more than one pad per hour, Shortness of breath, Dizziness, Fainting spells, Swelling in the ankles, Chest pain, In creased palpitations (irregular heartbeat), Calf discomfort, Uncontrolled pain Additional Instructions: If you experience any of the following, contact your healthcare provider. * Bleeding that soaks a pad every hour for 2 hours * Fever 100.4 or higher * Unrelieved incision or abdominal pain * Swelling, redness, discharge or bleeding from your incision or episiotomy site * Your incision begins to separate * Problems urinating (including inability to urinate or burning while urinating). * Visual changes * Severe headache * Flu-like symptoms * Pain or redness in one of both of your breasts * Pain, warmth, tenderness or swelling in your legs, especially the calf area * Frequent nausea and vomiting * Symptoms of depression or anxiety If you experience any of the following, call 911 or go to the nearest Emergency Room. * Chest pain * Problems breathing * Seizure activity * Partial or complete paralysis of a body part, slurred speech, weakness or drooping of the face, or a sudden inability to walk or hold your balance Allergies/Adverse Reactions: Allergies No Known Allergies Allergy (Verified 08/05/20 11:49) Medications to take at Discharge Vits [Prenatabs FA ] 1 tablet PO DAILY 12/21/17 Ferrous Sulfate [Iron] 08/05/20 When: 1-2 weeks for virtual visit. 6 weeks for visit. Primary Care Physician: Care Physician,No Primary [Primary Care Provider] - Test Results: Test results from this visit will be discussed in further detail at your follow- up appointment, if applicable.
--- NOTE | 2020-08-06 08:44 | PCM.DCVAG ---
Discharge Diet: No Restrictions Discharge Activity: May Shower, May Take a Tub Bath May resume sexual activity in: 6 weeks Ice area for (Minutes): 15 Weight Bearing Status: Weight bearing as tolerated Call your doctor if you observe: Fever of 101 or Higher, Inability to urinate, Inability to have a bowel movement, Using more than one pad per hour, Shortness of breath, Dizziness, Fainting spells, Swelling in the ankles, Chest pain, Increased palpitations (irregular heartbeat), Calf discomfort, Uncontrolled pain Additional Instructions: If you experience any of the following, contact your healthcare provider. Bleeding that soaks a pad every hour for 2 hours Fever 100.4 or higher Unrelieved incision or abdominal pain Swelling, redness, discharge or bleeding from your incision or episiotomy site Your incision begins to separate Problems urinating (including inability to urinate or burning while urinating). Visual changes Severe headache Flu-like symptoms Pain or redness in one of both of your breasts Pain, warmth, tenderness or swelling in your legs, especially the calf area Frequent nausea and vomiting Symptoms of depression or anxiety If you experience any of the following, call 911 or go to the nearest Emergency Room. Chest pain Problems breathing Seizure activity Partial or complete paralysis of a body part, slurred speech, weakness or drooping of the face, or a sudden inability to walk or hold your balance Allergies/Adverse Reactions: Allergies No Known Allergies Allergy (Verified 08/05/20 11:49) Medications to take at Discharge Vits [Prenatabs FA ] 1 tablet PO DAILY 12/21/17 Ferrous Sulfate [Iron] 08/05/20 When: 1-2 weeks for virtual visit. 6 weeks for visit. Primary Care Physician: Care Physician,No Primary [Primary Care Provider] - Test Results: Test results from this visit will be discussed in further detail at your follow-up appointment, if applicable.
[2020-08-06 08:45] VITALS: BP 114/36; PULSE 82; RESP 16; TEMP 36.6
[2020-08-06 13:00] VITALS: BP 96/56; PULSE 89; RESP 15; TEMP 36.2
[2020-08-06] MEDS: Ibuprofen 600 MG Tablet PO (13:06)
--- NOTE | 2020-08-06 13:55 | CASEMGMT ---
Social Work Met with MOB for hx depression/anxiety - FOB present in room. Pt appeared rested, happy; was pleasant and friendly. Discussed if MOB has any identified needs. This is her third child; therefore, he has everything for baby at home already. Pt expressed she has struggled with PPD/A prior - provided resources. Pt stated thus far she is doing well, baby is doing well, and delivery went well. Inquired about financial assistance, pt expressed she will need to set up a payment plan for hospitalization for as she does not have any health insurance. She is employed but has 12 weeks off work without pay. FOB/ does work full-time and can pay for pills during MOB time-off but nothing additional. FOB stated he does not have health insurance either, but does have PCP. Pt does not have PCP but would like to become established with one. SW provided PCP list. Offered it would be beneficial to follow up with a PCP especially if she develops a need/desire for depression/anxiety medications or for counseling. Pt agreed. Discussed Medicaid - pt unsure if she would qualify, but SW encouraged since adding another member to the family that household income drops for level of which she could qualify. Pt agreed to complete J[employer] application. Provided application. Also, explained when pt receives bill from hospital, to not ignore bill, but to call the number on the bill to discuss payment plan options. Explain to billing she has applied for [employer]ASON, has been approved or denied, and to proceed from there. Pt expressed understanding. Explained if she qualifies for JASON, the baby would qualify for services for WIC. Pt very appreciative of resources and assistance. Jeni Richey, EMAIL SPECIALIST ELECTRICAL DEVELOPMENT ENGINEER
--- NOTE | 2020-08-13 16:30 | CASEMGMT ---
Social Work Labor and Delivery Completed medicaid application was returned to this press writer with a request to fax to [facility]. Faxed application to confirmed fax for [facility], . No other services requested or indicated. -SCOUT Le, SECONDARY SPANISH TEACHER
== END 2020-08-06 18:00 | disposition home or self-care (01) | DRG 807 ==
LOC: WPOUT 13:48 → WP 13:48
PROVIDERS: Admitting Provider Obstetrics & Gynecology; Referring Provider Obstetrics & Gynecology; Visit Provider Obstetrics & Gynecology
DX: O34.219 Maternal care for unspecified type scar from previous cesarean delivery (principal); Z37.0 Single live birth; Z3A.38 38 weeks gestation of pregnancy
CPT/HCPCS: 59050; 82962; 84112; 85025; 86850; 86900; 86901; 99218; J7120; G0378; J2405

== ENCOUNTER 2022-08-20 06:01 | Day surgery (SDC) | payer MEDICAID, SELFPAY ==
--- NOTE | 2022-08-13 15:33 | PCM.HP.BLA ---
History and Physical Date of Admission: 08/20/22 HPI: The patient is a 26 year old female presenting for pre-operative visit. She is scheduled for laparoscopic bilateral salpingectomy, for sterilization on 1118. Procedure discussed along with risks, benefits and complications. Other alternatives discussed for management. Consent form signed? Yes. ? ? PAST MEDICAL HISTORY PAST MEDICAL HISTORY Diagnosis Date ? Anxiety ? ? anxiety ? ? Gestational diabetes mellitus (GDM) affecting 06/11/2020 ? ? PAST SURGICAL HISTORY PAST SURGICAL HISTORY Procedure Laterality Date ? SECTION HX ? CURRENT MEDICATIONS Current Outpatient Medications Medication Sig Dispense Refill ? Lklzdijp-Yl-And-Fe-FA ( VITAMIN) tab Take 1 tablet by mouth. (Patient not taking: No sig reported) ? ? ? No current facility-administered medications for this visit. ? ? ALLERGIES: Patient has no known allergies. ? PERSONAL HISTORY: SOCIAL HISTORY Social History ? Tobacco Use ? Smoking status: Never ? Smokeless tobacco: Never Vaping Use ? Vaping Use: Never used Substance Use Topics ? Alcohol use: Yes ? ? Comment: Occasional ? Drug use: Not Currently ? FAMILY HISTORY: FAMILY HISTORY FAMILY HISTORY Problem Relation Age of Onset ? Breast Cancer Mother 38 ? other (anxiety) Mother ? ? other (anxiety) Father ? ? No Known Problems Sister ? ? No Known Problems Maternal Grandmother ? ? No Known Problems Maternal Grandfather ? ? Hypertension Paternal Grandmother ? ? Stroke Paternal Grandmother ? ? Hypertension Paternal Grandfather ? ? No Known Problems Daughter ? ? ? REVIEW OF SYMPTOMS: GENERAL: denies fevers or chills ENDOCRINOLOGY: has not been on steroids Cardiology : denies palpitations or chest pain Respiratory: denies SOB or cough Hematology: denies history of prolonged bleeding or easy bruising or VTE Allergy: Denies history of personal or family history of allergy to anesthesia ? PHYSICAL EXAMINATION: ? VITALS: Blood pressure 92/70, pulse 73, height 5' 5.5 (1.664 m), weight 156 lb 6.4 oz (70.9 kg), last menstrual period 07/27/2022, SpO2 99 %. ? GENERAL: The patient is well nourished, well hydrated in no acute distress. , The patient is oriented to time, place, and person. NECK: Supple. No lynphadenopathy, normal thyroid, no thyromegaly. LUNGS: Clear to auscultation bilaterally. no wheezes, rhonchi or rales HEART: Regular rate and rhythm, Normal heart sounds, and No murmurs or gallops ? IMPRESSION: sterilization request ? PLAN:The risks/benefits/alternatives and personal involved for the planned laparoscopic bilateral salpingectomy were reviewed with the patient. Her questions were answered to her satisfaction and she desires to proceed. Consent was signed. I reviewed with her postop instructions and expectations. Risks, benefits and alternatives to sterilization have been discussed with the patient. She declines reversible options including LARC. She understands sterilization is permanent, irreversible, risks of failure, regret and ectopic. In addition she understands there are surgical risks as well. Her questions were answered to her satisfaction and consent was signed ? ? I have reviewed and updated past medical and surgical history, medications and allergies Assessment & Plan Assessment/Plan (1) Sterilization:
[2022-08-20 06:36] LABS: Internal QC Validated? YES +Cl - CLEAR BKGD; Pregnancy, Urine Negative Negative
[2022-08-20] MEDS: Lactated Ringers 1,000 ML 15 ML IV (06:55)
[2022-08-20 06:56] VITALS: BP 110/47; PULSE 76; RESP 16; TEMP 36.9; O2SAT 100; BMI 25.6
[2022-08-20] MEDS: Acetaminophen 500 MG Tablet 1000 MG PO (06:56)
[2022-08-20] MEDS: Celecoxib 200 MG Capsule PO (06:56)
[2022-08-20 06:57] LABS: Hematocrit 39.1 % (37-47); Mean Corp Hgb Conc 33.2 g/dL (32-36); Mean Corpuscular Hgb 27.3 pg (27.0-32.0); Mean Corpuscular Volume 82.1 fL (81-99); Mean Platelet Vol. 11.1 fl (6.2-12.0); Platelet Count 259 K/mm3 (150-450); RBC Distribution Width CV 13.6 % (11.6-14.6); RBC Distribution Width SD 40.4 fl (35.1-43.9); Red Blood Count 4.76 M/mm3 (4.2-5.4); White Blood Count 8.8 K/mm3 (4.4-11.0)
--- NOTE | 2022-08-20 07:30 | FALS_PTH ---
PATIENT: VIKI GARCIA LOC: [facility] [place] U#:[id number] AGE/SX: 26/F ROOM: RE08/20/[address]: Dr. Elizabeth Lundy MD : 1995 BED: DIS: 08/20/2022 SPEC #: [id number] RECD: 08/20/22 11:11 STATUS: CARRIE REAlecia #: [id number] SHAKEEL: 08/20/22 07:[address]: Elizabeth Lundy DEPT: SURGICAL PATHOLOGY RECD BY: Samira Becker ENTERED: 08/20/22 11:42 SP TYPE: FALL TUBES OTHR DR: No Primary Care Phys Tissues: Fallopian tube Procedures: Surgery Specimen Level II HEADER OPERATION: Laparoscopic, salpingectomy PRE-OP DIAGNOSIS: Desires sterilization TISSUE SUBMITTED: Bilateral fallopian tubs MICROSCOPIC DIAGNOSIS Right and left fallopian tubes, bilateral salpingectomies: Complete segments of fallopian tubes with no pathologic change. AM:chrissy 08/23/2022 MICROSCOPIC DESCRIPTION Slides are reviewed. GROSS DESCRIPTION Received in fixative is one container labeled with the patient's name and designated bilateral fallopian tubes. The specimen consists of bilateral fallopian tubes including fimbrial ends. One fallopian tube measures 5.5 cm in length and 0.6 cm in diameter. The second fallopian tube is received in three pieces and measures 7 cm in length and 0.6 cm in diameter. The fallopian tubes are not identified as right or left. Sections reveal unremarkable cut surfaces. In School Suspension Coordinator sections are submitted in two cassettes as follows: 1 ? intact fallopian tube, 2 ? second fallopian tube received in multiple pieces. / ALYSSA:chrissy 08/20/2022 TC:4 CPT: 62156 x2
--- NOTE | 2022-08-20 07:37 | DCINST_ITS ---
Discharge Instructions Diet Discharge Diet: No restrictions Activity Discharge Activity: May Drive (tomorrow), May Shower and May Take a Tub Bath Return to work on:: 08/23/22 May resume sexual activity in: No Restrictions Lifting Restrictions: 15 lb x 1-2 weeks Dressing / Incision Call your doctor if your incision/area has: Continuous Slow Oozing, Sudden Increased Bleeding and Foul Smelling Discharge Call your doctor if you observe: Fever of 101 or Higher Cleanse incision/area with: Soap & Water (your incision has skin glue, it can get wet) Follow Up Care Please Follow Up With: Elizabeth Lundy MD When: as needed Test Results: Test results from this visit will be discussed in further detail at your follow- up appointment, if applicable. Discharge Plan Admission Attending Provider: Elizabeth Lundy Primary Care Provider: Care Physician,Nora Primary Discharge Orders/Prescriptions Prescriptions: No Action NK Referrals / Follow Up: Care Physician,No Primary [Primary Care Provider] - Disposition Disposition (needs filled in before D/C Order can be placed): Home, Self Care
--- NOTE | 2022-08-20 07:39 | DCINST_ITS ---
Discharge Instructions Diet Discharge Diet: No restrictions Activity Return to work on:: 08/23/22 May resume sexual activity in: No Restrictions Dressing / Incision Call your doctor if your incision/area has: Continuous Slow Oozing, Sudden Increased Bleeding and Foul Smelling Discharge Call your doctor if you observe: Fever of 101 or Higher Cleanse incision/area with: Soap & Water (your incision has skin glue, it can get wet) Follow Up Care Please Follow Up With: Elizabeth Lundy MD Test Results: Test results from this visit will be discussed in further detail at your follow- up appointment, if applicable. Discharge Plan Admission Primary Reason for Your Visit: tubal sterilization Attending Provider: Elizabeth Lundy Primary Care Provider: Care Physician,Nora Primary Discharge Orders/Prescriptions Prescriptions: No Action NK Referrals / Follow Up: Care Physician,No Primary [Primary Care Provider] - Disposition Disposition (needs filled in before D/C Order can be placed): Home, Self Care
--- NOTE | 2022-08-20 07:39 | PCM.OPRPT ---
Problems Associated Problem List Diagnoses (1) Sterilization: Report of Operation Date of Procedure: 08/20/22 Pre-Operative Diagnosis: sterilization request Post-Operative Diagnosis: same Surgery/Procedure Performed:: laparoscopic bilateral salpingectomy Surgeon: Elizabeth Lundy nursing unit manager: None Type of Anesthesia: General Anesthesiologist: Rajat Floyd Special Medications: none Specimen's removed: bilateral salpingectomy Drains: none Estimated Blood Loss (mL): 5 Fluids Replaced: 800 Description of Procedure: The patient was taken to the operating room where she was prepped and draped in the dorsolithotomy position. A weighted speculum was placed in the vagina and the anterior lip of the cervix was grasped with a tenaculum. The ZUMI uterine manipulator was placed and the remainder of the instruments were removed from the vagina. Attention was turned to the abdomen. All port sites were infiltrated with 0.5% Marcaine before skin incisions were made. A 5 mm [intraumbilical] incision was made. The anterior abdominal wall was tented up with 2 towel clamps while a 5 mm blade less trocar and sleeve were [directly inserted]. Intraperitoneal placement was confirmed with the laparoscope. The pneumoperitoneum was created and the underlying abdominal contents were intact. The patient was placed in Trendelenburg. Right and left lower quadrant ports were placed under direct visualization lateral to the inferior epigastric vessels. The bowel was swept away and the above findings were noted. The Enseal device was used to clamp seal and transect the antimesenteric portions of the right tube to the cornual insertion of the uterus. The tube was amputated from the uterus and the pedicles were all confirmed to be hemostatic. The same procedure was performed on the contralateral side. The left side did have some adhesions of the fimbria to the ovary so I had to remove part of that tube in segments to remove it from the ovary. The specimens were brought out through a 5 mm port. The pedicles were again examined and found to be hemostatic. The lateral ports were removed under direct visualization and no active bleeding was noted. The pneumoperitoneum was released. The skin incisions were closed with Monocryl suture in a subcuticular fashion and skin glue . The vaginal instruments were removed and the vaginal sweep was completed by me. I performed the entire procedure with assistance all sponge and needle counts were correct and the patient was taken to the recovery room in stable condition. Grafts/Implants Used: none Procedure Start Time: 07:53 Procedure Stop Time: 08:12 Complications none Admit VTE Documentation VTE Present on Admission: No VTE Mechan Device Prophylaxis: SCD's VTE Pharm Prophylaxis ordered?: No Reason prophylaxis not ordered:: Procedure Not Indicated
[2022-08-20] MEDS: Bupivacaine 0.25% 30 ML Vial (08:12)
[2022-08-20 08:28] VITALS: BP 102/71; BP 110/47; PULSE 82; RESP 16; TEMP 37.2; O2SAT 100
[2022-08-20 08:30] VITALS: BP 103/71; BP 110/47; PULSE 62; RESP 16; O2SAT 99
[2022-08-20 08:45] VITALS: BP 105/74; BP 110/47; PULSE 56; RESP 16; O2SAT 100
[2022-08-20] MEDS: Lactated Ringers 1,000 ML 75 ML IV (09:01)
[2022-08-20 09:02] VITALS: BP 104/64; BP 110/47; PULSE 72; RESP 16; TEMP 36.6; O2SAT 100
[2022-08-20 09:23] VITALS: BP 110/47
== END 2022-08-20 09:29 | disposition home or self-care (01) ==
LOC: SDC 06:05 → AC 06:06
PROVIDERS: Anesthesiology; Referring Provider Obstetrics & Gynecology; Visit Provider Obstetrics & Gynecology
PROC: (CPT 58661; principal; 2022-08-20 07:15)
DX: Z30.2 Encounter for sterilization (principal)
CPT/HCPCS: 58661; 00840; 81025; 85027; 88302; J7120; C1760; J2405

== ENCOUNTER 2022-09-24 18:41 | Emergency (ER) | payer MEDICAID, SELFPAY ==
[2022-09-24 18:43] VITALS: BP 115/67; PULSE 94; RESP 16; TEMP 36.2; O2SAT 100; BMI 25.9
[2022-09-24 19:24] LABS: Absolute Lymphocyte Count 2.22 X10^3/uL (0.83-4.51); Absolute Neutrophil Count 6.1 X10^3/uL (2.0-7.7); Basophil# 0.05 X10^3/uL; Basophil% 0.5 % (0-1); Eosinophil# 0.14 X10^3/uL; Eosinophils% 1.5 % (0-5); Hemoglobin 13.1 g/dL (12.0-15.0); Lymphocyte # 2.22 X10^3/ul (0.83-4.51); Lymphocyte % 24.3 % (19-41); Mean Corpuscular Hgb 27.5 pg (27.0-32.0); Mean Corpuscular Volume 86.1 fL (81-99); Mean Platelet Vol. 10.2 fl (6.2-12.0); Monocyte# 0.62 X10^3/uL; Monocyte% 6.8 % (0-10); NRBC Flagged by Analyzer 0 % (0-5); Neutrophil # 6.08 X10^3/uL (2.7-7.7); Neutrophil % 66.6 % (47-70); Platelet Count 355 K/mm3 (150-450); RBC Distribution Width SD 44.6 fl (35.1-43.9); Red Blood Count 4.76 M/mm3 (4.2-5.4); White Blood Count 9.1 K/mm3 (4.4-11.0)
[2022-09-24 19:27] LABS: Bacteria 0 SEEN /hpf (None Seen); Mucous, Urine 0 SEEN /hpf (<or=2+)
[2022-09-24 19:28] LABS: Color, Urine Yellow (Yellow); Glucose, Dipstick Normal (Normal); Ketone-Dipstick Negative (Negative); Leukocyte Esterase-Dipstick 25 /ul (Negative); Nitrite-Dipstick Negative (Negative); Occult Blood-Urine 250 /ul (Negative); Protein-Dipstick 15 mg/dl (Negative); Urine Bilirubin Dipstick Negative (Negative); Urine Clarity Clear (Clear); Urine Urobilinogen Normal (Normal)
[2022-09-24 19:37] LABS: Red Blood Cells-Urine 50-100 SEEN /hpf (0-5)
[2022-09-24 19:38] LABS: Internal QC Validated? YES +Cl - CLEAR BKGD; Pregnancy, Urine Negative Negative; Squamous Epithelial Cells - UA 0-5 SEEN /hpf (5-10); White Blood Cells 0-5 SEEN /hpf (0-5)
[2022-09-24 19:42] LABS: ALB/GLOB Ratio 1.1 RATIO (0.9-2.4); AST(SGOT) 58 U/L (15-37); Alanine Aminotransfer ALT/SGPT 57 U/L (13-56); Albumin, Serum 3.9 g/dL (3.2-5.0); Alkaline Phosphatase 37 U/L (45-117); Anion Gap 2 (5-15); BUN 16 mg/dL (7-18); BUN/Creat Ratio 19.9 RATIO (10-20); Calcium,Total 9.2 mg/dL (8.5-10.1); Chloride 108 mmol/L (98-107); EST Glomerular Filtration Rate 90 mL/min (>60); Est Glom Filt Rate - Afr Amer 109 mL/min (>60); Estimated Creatinine Clearance 94.21 ml/min; Globulin 3.5 g/dL (2.2-4.2); Glucose 100 mg/dL (74-106); Lipase 83 U/L (73-393); Potassium 3.7 mmol/L (3.5-5.1); Protein, Total 7.4 g/dL (6.4-8.2); Sodium Level 141 mmol/L (136-145)
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
[2022-09-24 21:15] VITALS: RESP 18
[2022-09-24 23:08] VITALS: RESP 18
[2022-09-24] MEDS: Ketorolac 15 MG/ML Vial IV (23:13)
--- NOTE | 2022-09-24 23:16 | US_ITS ---
STUDY: ABDOMINAL ULTRASOUND - RIGHT UPPER QUADRANT REASON FOR VISIT: Female, 26 years old pain TECHNIQUE: Ultrasound evaluation of the right upper quadrant was performed with real-time and static ortiz-scale imaging. TECHNICAL QUALITY: Adequate. COMPARISON: None. FINDINGS: Liver: The liver measures 14.7 cm. There is normal echogenicity of the liver. The bile ducts are within normal limits. There is hepatic color flow. The direction of portal flow is hepatopetal. There is no demonstrated mass lesion. Gallbladder: Multiple shadowing stones within the gallbladder. The gallbladder wall measures 3 mm. There is a negative sonographic Rojas''s sign. There is no pericholecystic fluid. Common Bile Duct (C.B.D.): The common bile duct measures 3 mm. Pancreas: Limited visualization due to shadowing bowel gas. Right Kidney: Normal size of the right kidney. The right kidney measures 11.1 x 6.0 x 4.5 cm. Normal renal cortex. The right cortex measures 1.5 cm. There is no demonstrated renal mass or cyst. There is no right hydronephrosis. US/Gallbladder IMPRESSION: 1. Large number of shadowing stones within the gallbladder. Mild gallbladder wall thickening. 2. No sonographic Rojas''s sign or duct dilatation. 3. Normal sonographic appearance of the liver. 4. Normal sonographic appearance of the RIGHT kidney. Electronically Signed: Roscoe Flores MD at 1:37 EST ,
[2022-09-25 01:11] VITALS: RESP 18
== END 2022-09-25 02:37 | disposition home or self-care (01) ==
PROVIDERS: Emergency Provider Emergency Medicine; Visit Provider Emergency Medicine
DX: R10.11 Right upper quadrant pain (principal); K80.20 Calculus of gallbladder without cholecystitis without obstruction; R74.8 Abnormal levels of other serum enzymes; R10.13 Epigastric pain; Z87.891 Personal history of nicotine dependence
CPT/HCPCS: 71046; 71260; 74177; 76705; 80053; 81001; 81025; 83690; 85025; 96374; 99282; Q9967; A4216

== ENCOUNTER → 2022-10-01 | Outpatient (CLI) | payer MEDICAID, SELFPAY ==
[2022-10-01 17:59] LABS: AST(SGOT) 11 U/L (15-37); Alanine Aminotransfer ALT/SGPT 26 U/L (13-56); Alkaline Phosphatase 41 U/L (45-117); Bilirubin, Direct 0.09 mg/dL (0.00-0.30); Globulin 3.9 g/dL (2.2-4.2); Protein, Total 7.9 g/dL (6.4-8.2)
== END | disposition home or self-care (01) ==
LOC: LAB 16:24
PROVIDERS: Visit Provider Surgery
DX: R74.8 Abnormal levels of other serum enzymes (principal)
CPT/HCPCS: 36415; 80076

== ENCOUNTER 2022-10-07 12:31 | Day surgery (SDC) | payer MEDICAID, SELFPAY ==
[2022-10-07] VITALS (7 sets, daily range): BP systolic 106–121; BP diastolic 69–80; PULSE 68–95; RESP 16–18; TEMP 36.4–36.8; O2SAT 99–100; BMI 25.9
--- NOTE | 2022-10-07 | GALL_PTH ---
PATIENT: VIKI GARCIA LOC: [facility] [place] U#:[id number] AGE/SX: 26/F ROOM: RE10/07/[address]: Dr. Indira Whitley MD : 1995 BED: DIS: 10/07/2022 SPEC #: [id number] RECD: 10/07/22 17:10 STATUS: CARRIE REAleica #: [id number] SHAKEEL: 10/07/22 00:[address]: Indira Whitely DEPT: SURGICAL PATHOLOGY RECD BY: Anish Bailon ENTERED: 10/08/22 10:36 SP TYPE: CHELSI GAVIRIA DR: No Primary Care Phys Tissues: Gallbladder, NOS Procedures: Surgery Specimen Level III HEADER OPERATION: Laparoscopic cholecystectomy with IOC PRE-OP DIAGNOSIS: Cholelithiasis, right upper quadrant abdominal pain, elevated liver enzymes TISSUE SUBMITTED: Gallbladder MICROSCOPIC DIAGNOSIS Gallbladder, cholecystectomy: Chronic cholecystitis and cholelithiasis. SJ:chrissy 10/11/2022 MICROSCOPIC DESCRIPTION Slides are reviewed. GROSS DESCRIPTION Received is one container labeled with the patient's name and designated gallbladder. The specimen consists of a previously opened gallbladder measuring 8 x 3 x 3 cm. The external surface is smooth and glistening. Focally, it is granular, hemorrhagic and contains cautery artifact. The lumen of the gallbladder contains yellow-green mucoid bile and multiple chalky yellow calculi and fragments of calculi ranging in size from 0.1 to 0.2 cm in greatest dimension. The gallbladder mucosa is farah yellow bile-stained and without any mass lesions. The gallbladder wall averages 0.5 cm in thickness and is free of mass lesions. [employer] sections of the gallbladder and the cystic duct at margin of resection are submitted in one cassette. / AM:chrissy 10/08/2022 TC:3 CPT: 00289
--- NOTE | 2022-10-07 12:51 | EKG12_ITS ---
Test Reason : PRE-OP Blood Pressure : / mmHG Vent. Rate : 068 BPM Atrial Rate : 068 BPM P-R Int : 150 ms QRS Dur : 072 ms QT Int : 400 ms P-R-T Axes : 006 047 068 degrees QTc Int : 425 ms Normal sinus rhythm Normal ECG No previous ECGs available Confirmed by YVETTE LACY, HARRIET ([id number]), index editor CHAS RICE ([id number]) on 10/12/2022 8:46:02 AM Referred By: Indira Whitley Confirmed By:HARRIET CRAWFORD MD
--- NOTE | 2022-10-07 12:57 | HP.PCM_ITS ---
History and Physical Date of Admission: 10/07/22 Date of Service:? 10/01/22 MR#: [id number] Acct: [id number] Name:VIKI TABOR Rep #: [id number] : 1995 ? ? Provider: Dr. Indira Whitley MD Age/Sex:? 26/F ? ? [place] [facility] [place] Status: Signed Intake Vital Signs ? 09/24/2218:43 10/01/2215:41 Height 5 ft 5 in 5 ft 5.5 in Weight: ? 158 lb BMI ? 25.9 BP ? 118/77 Blood Pressure Location ? Rt brachial Position ? Sitting Respiration ? 17 Pulse ? 81 Pulse Source ? Monitor Temp ? 97.2 F L Temp Source ? Temporal Pulse Oximetry (%) ? 100 Oxygen Delivery Method ? room air Intake Visit Reasons:?GALLBLADDER Chief Complaint: Gallbladder consult Is patient in pain?: No Allergies No Known Allergies Allergy (Verified 10/01/22 15:43) Medications ondansetron 4 mg disintegrating tablet 4 mg PO TID PRN nausea and vomiting #21 tabs 09/25/22 [Rx Confirmed 10/01/22] oxycodone-acetaminophen 5 mg-325 mg tablet (Percocet) 1 tab PO Q6H PRN pain 3 days #12 tabs 09/25/22 [Rx Confirmed 10/01/22] PFSH Medical History? Former smoker Wears glasses Surgical History? Previous section Social History? Smoking Status:? Former smoker HPI HPI HPI: 26 y/o F present for cholelithesis for f/u after ER visit.? Pt states she had increased ruq pain and went to ER found out she has cholelithiasis and had normal WBC; U/S show wall of 2.5 mm and multiple stones; CBD 3 mm, no pericholecystic fluid.? Pt states she has been able to drink but only eats about one meal a day due to pain and has been avoiding fatty or greasy foods.? She still has RUQ/epigastric pain which is tolerable now but constant. ROS General General: Yes weight change and fatigue; No appetite, colon cancer, breast cancer or weakness HEENT HEENT: No difficulty swallowing, eye injury, eye surgery, swollen glands or hoarseness Endo Endocrine: No thyroid disease, diabetes mellitus, thyroid cancer, Hair loss, heat intolerance or cold intolerance Skin Skin: No rash or changing moles Breast Breast: No left breast lump, right breast lump, nipple discharge, breast pain, abnormal mammogram, abnormal US or breast enlargement Musc Musculoskeletal: No back problems, arthritis, rheumatoid arthritis, gout or joint pain Cardio Cardiovascular: No murmur, pacemaker, heart disease, atrial fibrillation, high blood pressure, heart attack, heart stent, palpitations, shortness of breat with exertion or chest pain Psych Psychiatric: No depression, anxiety or hearing voices Resp Respiratory: No shortness of breath, No sleep apnea, No cough, No COPD, No ast hma, No emphysema and No wheezing Gastro Gastrointestinal: Yes abdominal pain, Yes nausea or vomiting, No diarrhea, No constipation, No blood in stool, No acid reflux, No hemorrhoids, No ulcers, Yes gallbladder problem and Yes black,tarry stools Barrett Hematologic: No blood thinners, No blood disorders, No bleeding, No anemia and No blood clots Neuro Neurologic: No system reviewed and no additional complaints, except as documented, No as per HPI, No abnormal gait, No abnormal hearing, No abnormal movements, No abnormal speech, No behavioral changes, No burning sensations, No confusion, No convulsions, No disequilibrium, No dizziness, No localized weakness, No frequent falls, No headache(s), No lack of coordination, No loss of vision, No memory loss, No numbness, No other visual disturbances, No radicular pain, No restless legs, No sensory deficit, No syncope, No tingling, No tremor(s), No weakness and No other Exam Const General: cooperative, healthy appearing and no acute distress [facility] Head: normal to inspection Resp Effort & Inspection: normal respiratory effort Cardio Rate: regular rate GI Inspection: non-distended Palpation: soft, no guarding, no hernias and tender in the epigastrum and in the RUQ Skin General: no rashes or lesions noted Neuro General: patient oriented x3 Extrem General: no clubbing, cyanosis or edema Psych Affect: normal affect Assessment and Plan Assessment and Plan (1) Cholelithiasis: ?Status:?Acute (2) Right upper quadrant abdominal pain: ?Status:?Acute (3) Elevated liver enzymes: ?Status:?Acute ? ? ? Orders: Orders Liver Profile 10/01/22 R74.8 - Abnormal levels of othe r serum enzymes ? Plan Personally reviewed CT a/p and US myself and with the patient.? will recheck LFT as AST/ALT slightly elevated in ER--addendum wnl now. Reviewed the anatomy with the patient and discussed the procedure: laparoscopic cholecystectomy with possible cholangiograms, possible open. Review risks including but not limited to bleeding, infection, hernia, bile leak, retained gallstones requiring another procedure ERCP- Endoscopic Retrograde Cholangiopancreatography, injury to another organ (bile ducts, common bile duct, small bowel, etc.) and conversion to an open procedure. All questions were answered. Coding Level of Care Code Off vis,new,level 4 Diagnoses Cholelithiasis? K80.20 Right upper quadrant abdominal pain? R10.11 Elevated liver enzymes? R74.8 10/02/22 1612 <Electronically signed by Indira Whitley MD> Date Indira Whitley MD
[2022-10-07] MEDS: Lactated Ringers 1,000 ML 15 ML IV ×2 (13:21→14:30)
[2022-10-07] MEDS: Cefotetan 2 GM in 0.9% NS 100 ML IV (13:41)
--- NOTE | 2022-10-07 14:03 | RAD_ITS ---
EXAM: FL CHOLANGIOGRAPHY AND/OR PANCREATOGRAPHY CLINICAL INDICATION: PAIN TECHNIQUE: Fluoroscopic cholangiogram and/or pancreatography of the right upper quadrant. Fluoroscopic guidance was provided by a physician. This report was created using [employer] report [employer] technology. COMPARISON: None. FINDINGS: Fluoroscopic cine images of operative cholangiogram obtained in the OR at the time of cholecystectomy with contrast injected via the cystic duct. Images show no evidence of bile duct stone or obstruction. There is visualization of the duodenum. Total fluoroscopy time of 7.5 seconds with total dose of 1.36 mGY. RAD/Cholangiogram/ O R,Initial IMPRESSION: Normal operative cholangiogram. Electronically Signed: Mark Richards MD at 15:07 EST ,
--- NOTE | 2022-10-07 15:39 | PCM.OPRPT ---
Report of Operation Date of Procedure: 10/07/22 Pre-Operative Diagnosis: Cholelithiasis Surgery/Procedure Performed:: Laparoscopic cholecystectomy Surgeon: Indira Whitley Type of Anesthesia: General/Supplemental Anesthesiologist: Rajat Floyd Special Medications: Cefotetan 2 g IV x1 Specimen's removed: Gallbladder and stones Estimated Blood Loss (mL): 10 cc Description of Procedure: Indications: this is a 26 year-old female who developed abdominal pain/nausea/vomiting and on workup was found to have cholelithiasis, borderline wall thickening, with a normal common bile duct. Laparoscopic cholecystectomy was elected. Description procedure: The patient was placed on operating table in supine position. A timeout was completed verifying correct patient, procedure, site, position and special equipment prior to beginning procedure. General Anesthesia was induced. The abdomen was prepped and draped in usual sterile fashion. An incision was made in the natural skin line below the umbilicus. The fascia was elevated and incised. The peritoneum was elevated and incised. Entry into the peritoneum was confirmed visually and no bowel was noted in the vicinity of the incision. West trocar was placed. The abdomen was insufflated with carbon dioxide to a pressure of 12-15 mmHg. Patient tolerated insufflation well. The laparoscope was then inserted and abdomen inspected. No injuries from initial trocar placement were noted. Additional trochars were then inserted in the following locations 5 mm trocar in the epigastrium and 2 more 5 mm trochars along the right costal margin. The abdomen was inspected no abnormalities were found. The table is placed in reverse Trendelenburg position with the right side up. The dome of the gallbladder was grasped with atraumatic grasper passed through the lateral port and retracted over the dome of the liver. Infundibulum was then grasped with atraumatic grasper through the midclavicular port and retracted to the right lower quadrant. This maneuver exposed Calot's triangle. The peritoneum overlying the gallbladder infundibulum was then incised and cystic duct and artery identified and circumferentially dissected. Rinaldi catheter was used for cholangiograms. The cholangiogram showed good filling of the common bile duct into the duodenum with no filling defects, good filling of the right and left bile ducts as well. The cystic duct and artery were then doubly clipped and divided close to the gallbladder. The gallbladder then dissected from its peritoneal attachments by electrocautery. Hemostasis was checked and the gallbladder and contained stones were removed using the endoscopic retrieval bag through the umbilical port. Due to multiple stones the stones were smashed with Susan forceps in order to come out a smaller incision. The gallbladder is passed off table as specimen. The gallbladder fossa was irrigated with saline and hemostasis obtained. There is no evidence of bleeding from the gallbladder fossa or cystic artery leakage of bile from the cystic duct stump. Secondary trochars removed under direct vision. No bleeding was noted the trocar sites. The laparoscope was withdrawn and umbilical trocar removed. The abdomen was allowed to collapse. The fascia of the 12 mm trocar was closed with a eiejda-[id number] 0 Vicryl suture. The skin was closed with sutures of 4-0 Monocryl and Steri-Strips. The patient was extubated. The patient tolerated procedure well and was taken to the postanesthesia care unit in stable condition. Complications None
--- NOTE | 2022-10-07 15:42 | DCINST_ITS ---
Discharge Instructions Diet Discharge Diet: Light diet - advance as tolerated Activity Discharge Activity: May Not Drive (while taking narcotic pain medications.) May shower in (days): 1 Lifting Restrictions: no lifting >20 lbs x 2 wks, no strenuous exercise for 4 wks Dressing / Incision Call your doctor if your incision/area has: Continuous Slow Oozing, Sudden Increased Bleeding, Increased Pain/ Swelling, Increased Redness, Foul Smelling Discharge and Swelling at the incision site Call your doctor if you observe: Fever of 101 or Higher Remove Dressing in: 2 days Cleanse incision/area with: Soap & Water Additional Dressing/Incision Instructions:: Steri-Strips will fall off in 7 to 10 days, if they do not fall off okay to remove after 10 days. Follow Up Care Please Follow Up With: Indira Whitley MD When: Call the office for a follow-up appointment 2 weeks; after 5 PM and on the weekends call [phone] with any concerns. Test Results: Test results from this visit will be discussed in further detail at your follow- up appointment, if applicable. Discharge Plan Admission Attending Provider: Indira Whitley Primary Care Provider: Care Physician,Nora Primary Discharge Orders/Prescriptions Prescriptions: Continued ondansetron 4 mg tablet,disintegrating 4 mg PO TID PRN (Reason: nausea and vomiting) Qty: 21 0RF oxycodone-acetaminophen [Percocet] 5-325 mg tablet 1 tab PO Q6H PRN (Reason: pain) 3 Days Qty: 10 0RF Referrals / Follow Up: Care PhysicianNo Primary [Primary Care Provider] - Disposition Disposition (needs filled in before D/C Order can be placed): Home, Self Care
== END 2022-10-07 19:06 | disposition home or self-care (01) ==
LOC: SDC 12:32 → AC 12:33
PROVIDERS: Referring Provider Surgery; Visit Provider Surgery
PROC: (CPT 47610; principal; 2022-10-07 13:40)
DX: K80.10 Calculus of gallbladder with chronic cholecystitis without obstruction (principal); R74.8 Abnormal levels of other serum enzymes; Z87.891 Personal history of nicotine dependence
CPT/HCPCS: 47562; 00790; 74300; 76000; 88304; 93005; J7120; J2405

== ENCOUNTER 2025-05-09 13:43 | Emergency (ER) | payer SELFPAY ==
[2025-05-09 13:44] VITALS: BP 128/80; PULSE 87; RESP 15; TEMP 36.9; O2SAT 100; BMI 25.9
--- NOTE | 2025-05-09 14:53 | CT_ITS ---
PROCEDURE: CT ABDOMEN/PELVIS W IV CONT ONLY 05/09/2025 REASON FOR EXAM: RIGHT LOWER QUADRANT ABDOMINAL PAIN. TECHNIQUE: CT ABDOMEN/PELVIS W IV CONT ONLY. Coronal and Sagittal reconstruction series were provided. CONTRAST: Isovue 370 VOLUME: 99 mL One or more dose reduction techniques were used (e.g., Automated exposure control, adjustment of the mA and/or kV according to patient size, use of iterative reconstruction technique. RADIATION DOSE SUMMARY: DLP: 459.75 mGycm COMPARISON: Abdominal CT and ultrasound 09/24/2022. FINDINGS: Lung bases: Clear. Liver: Unremarkable. Gallbladder: Surgically absent. No biliary ductal dilatation. Spleen: Normal size and morphology. Pancreas: Unremarkable. Adrenals: Unremarkable. Kidneys: Normal, symmetric enhancement. No urolithiasis or hydroureteronephrosis. Bladder: Unremarkable, no bladder calculus is seen. Reproductive Organs: Simple appearing right ovarian cyst measuring 2.4 cm. Otherwise unremarkable uterus and adnexae. No significant pelvic free fluid is seen. Bowel: Unremarkable, no obstruction or active inflammatory process. Normal appendix. Lymph nodes: No enlarged abdominopelvic lymph nodes. Vasculature: Normal course and caliber of the abdominal aorta and IVC. Peritoneum / Retroperitoneum: No ascites or free air. Bones: No significant abnormality. Osteitis condensans ilii. CT/Abdomen/Pelvis W IV Cont ONLY IMPRESSION: No acute or active inflammatory intra-abdominal pathology. Normal appendix. Small 2.4 cm right ovarian cyst/dominant follicle. No follow-up indicated. Reading Location: [id number]
[2025-05-09] MEDS: 0.9% Normal Saline (1000mL) 1,000 ML 999 ML IV (15:05)
[2025-05-09 15:23] LABS: Hematocrit 39.0 % (37-47); Hemoglobin 12.7 g/dL (12.0-15.0); Immature Granulocytes Count 0.050 X10^3/uL (0.0-0.0); Mean Corp Hgb Conc 32.6 g/dL (32-36); Mean Corpuscular Volume 83.7 fL (81-99); Mean Platelet Vol. 10.8 fl (6.2-12.0); NRBC Flagged by Analyzer 0 % (0-5); Platelet Count 359 K/mm3 (150-450); RBC Distribution Width CV 13.5 % (11.6-14.6); RBC Distribution Width SD 41.4 fl (35.1-43.9); Red Blood Count 4.66 M/mm3 (4.2-5.4); White Blood Count 10.5 K/mm3 (4.4-11.0)
[2025-05-09 16:00] LABS: Internal QC Validated? YES +Cl - CLEAR BKGD; Pregnancy, Serum, hCG Quali. NEGATIVE Negative; Record Kit Lot#, Serum Preg. 962302
[2025-05-09 16:09] LABS: Anion Gap 14 (5-15); BUN 10 mg/dL (4-19); BUN/Creat Ratio 13.3 RATIO (10-20); Calcium,Total 9.3 mg/dL (7.6-11.0); Carbon Dioxide 24.0 mmol/L (21.0-32.0); Chloride 100 mmol/L (98-108); Estimated Creatinine Clearance 108.69 ml/min (50-250); Glucose 84 mg/dL (70-99); Potassium 3.6 mmol/L (3.3-5.1)
--- NOTE | 2025-05-09 16:17 | ED.VIS.GI ---
HPI HPI - GI History of Present Illness Chief Complaint: Abd Pain Informant: patient Abdominal Pain/Flank Pain Onset: Yesterday Context: Gradual Onset Timing: Continuous Quality: Aching Location: RLQ Worsened by: Movement and - (Walking) Relieved by: Nothing Nausea/Vomiting/Emesis GI Symptom: Positive for Nausea; Negative for Vomiting Diarrhea/Melena/Hematochezia GI Symptom: Negative for Diarrhea, Melena or Hematochezia Associated Symptoms Associated Symptoms: Negative for Dysuria, Frequency or Hematuria LMP: Approximately 1 week ago Narrative Narrative: Patient presents with abdominal pain that began yesterday. Patient states it came on gradually. Patient states it has been constant. Patient describes it as aching. Patient states she has had similar episodes in the past that have resolved on their own. The patient states her pain is mainly over the right lower abdomen. Patient states it is worse with movement and with walking. Patient admits to some nausea but denies any vomiting. Patient admits to decreased appetite. Patient states her last meal was around 6 PM last evening. Patient denies any diarrhea, melena, hematochezia. Patient dates her last menstrual period was approximately 1 week ago. PFSH PFSH Medical History Wears glasses Former smoker Home Medications ?Medication ?Instructions ?Recorded ?Last Taken ?Type NK 05/09/25 Unknown History Allergy/AdvReac Type Severity Reaction Status Date / Time No Known Allergies Allergy Verified 05/09/25 13:45 Surgical History S/P laparoscopic cholecystectomy Hx of bilateral salpingectomy Previous section Social History Smoking Status: Former smoker ROS ROS ED Constitutional Constitutional ED: Denies chills or fever(s) Eyes Eyes: Denies blurry vision or change in vision ENT ENT ED: Denies rhinorrhea or sore throat Cardiovascular Cardiovascular: Denies chest pain or palpitations Respiratory/Chest Respiratory/Chest: Denies cough or dyspnea Gastrointestinal Gastrointestinal: Reports abdominal pain and nausea; Denies diarrhea, melena or vomiting Genitourinary Genitourinary ED: Denies dysuria or hematuria Musculoskeletal Musculoskeletal: Reports back pain and neck pain Integumentary Denies abscess or rash Neurologic Neurologic: Reports headache(s); Denies weakness Allergic/Immunologic Allergic/Immunologic ED: Denies mouth swelling or urticaria EXAM Physical Exam Const Vital Signs: 05/09/25 13:44 Temperature 98.4 F Temperature Source Oral Pulse Rate 87 Respiratory Rate 15 Blood Pressure 128/80 H Blood Pressure Mean 96 Pulse Ox 100 Oxygen Delivery Method Room Air Positive well nourished and well developed General Appearance ED: well developed and NAD HEENT Reports moist mucous membranes Neck supple and no JVD Resp normal respiratory effort and clear to auscultation bilaterally Cardio regular rate and regular rhythm GI non-distended Palpation: soft and tender RLQ; Negative for guarding or rebound tenderness present Extremity full ROM General Extremety ED: Negative for edema or tenderness General Extremity: Negative for edema Neuro CN's II-XII intact bilaterally, moves all extremities and no sensory deficits noted Sensorium / Orientation: alert Motor Exam: strength 5/5 throughout Psych mental status grossly normal MDM MDM MDM Narrative Medical decision making narrative: Differential diagnosis includes appendicitis, ureteral calculus, ovarian cyst, ectopic , viral illness, and electrolyte abnormality. CBC will be obtained to assess for leukocytosis and anemia. Basic metabolic profile will be obtained to assess for electrolyte abnormality and renal function. Serum HCG will be obtained to assess for . CT scan of the abdomen and pelvis will be obtained to assess for appendicitis and ureteral calculus. Lab Data Attestation: I reviewed the patient's lab results. Lab results narrative: CBC was reviewed and was within normal limits. Basic metabolic profile was reviewed and was within normal limits. Serum hCG was reviewed and was negative. Labs: Laboratory Results - last 24 hr 05/09/25 13:55 WBC 10.5 RBC 4.66 Hgb 12.7 Hct 39.0 MCV 83.7 MCH 27.3 MCHC 32.6 RDW Std Deviation 41.4 RDW Coeff of Kaci 13.5 Plt Count 359 MPV 10.8 Immature Gran % (Auto) 0.500 Neut % (Auto) 70.3 H Lymph % (Auto) 21.3 [place] % (Auto) 6.4 Eos % (Auto) 1.0 Baso % (Auto) 0.5 Absolute Neuts (auto) 7.4 Absolute Lymphs (auto) 2.24 Nucleated RBC % 0 Sodium 138 Potassium 3.6 Chloride 100 Carbon Dioxide 24.0 Anion Gap 14 BUN 10 Creatinine 0.74 Estim Creat Clear Calc 108.69 Est GFR (MDRD) Non-Af 112 BUN/Creatinine Ratio 13.3 Glucose 84 Calcium 9.3 Serum , Qual NEGATIVE Radiography Diagnostic Testing: Clinical Impression(s) from Imaging Studies Abdomen/Pelvis CT 05/09/25 14:53 IMPRESSION: No acute or active inflammatory intra-abdominal pathology. Normal appendix. Small 2.4 cm right ovarian cyst/dominant follicle. No follow-up indicated. Reading Location: [facility] CT scan of the abdomen and pelvis was obtained. There is no acute abnormality noted. There is a small 2.4 cm right ovarian cyst or follicle. The appendix was visualized and was normal. There is no free air or free fluid. This was interpreted by the radiologist and was also independently reviewed by myself. Treatment and Re-Evaluation :: Patient was given IV fluids and Zofran. Patient was feeling better on reevaluation. Patient was advised of her findings. Patient was instructed to take Tylenol or ibuprofen as needed for pain. Patient was instructed to follow-up with her primary care physician in 5 to 7 days. Patient understood and was agreeable with the plan. All questions were answered. Discharge Plan Triage Chief Complaint: Abd Pain ED Provider: Elmer Noel Dx/Rx/DC Orders Clinical Impression: Cyst of right ovary, Abdominal pain, right lower quadrant Instructions: ED Ovarian Cyst Prescriptions: No Action NK Primary Care Provider: Care Physician,No Primary Referrals: Elizabeth Lundy MD [Med Staff - Active Staff] - 5-7 Days Care Physician,No Primary [Primary Care Provider] - Print Language: Burkinan Disposition Disposition: Home, Self Care
[2025-05-09 17:01] VITALS: BP 111/73; PULSE 68; RESP 18; O2SAT 100
[2025-05-09 17:02] VITALS: BP 111/73; PULSE 68; RESP 18; TEMP 36.9; O2SAT 100
[2025-05-09 17:03] LABS: Mucous, Urine 0 SEEN /hpf (<or=2+)
[2025-05-09 17:06] LABS: Color, Urine Straw (Yellow); Glucose, Dipstick Normal (Normal); Ketone-Dipstick 5 mg/dl (Negative); Leukocyte Esterase-Dipstick 100 /ul (Negative); Nitrite-Dipstick Negative (Negative); Occult Blood-Urine Negative /ul (Negative); Protein-Dipstick 15 mg/dl (Negative); Specific Gravity, Urine 1.010 (1.002-1.030); Urine Bilirubin Dipstick Negative (Negative)
[2025-05-09 17:16] LABS: Squamous Epithelial Cells - UA 0-5 SEEN /hpf (5-10)
[2025-05-09 17:18] LABS: Red Blood Cells-Urine 0-5 SEEN /hpf (0-5)
== END 2025-05-09 17:09 | disposition home or self-care (01) ==
PROVIDERS: Emergency Provider Emergency Medicine; Visit Provider Emergency Medicine
DX: N83.201 Unspecified ovarian cyst, right side (principal); R11.0 Nausea; Z87.891 Personal history of nicotine dependence; R51.9 Headache, unspecified; R10.31 Right lower quadrant pain
CPT/HCPCS: 74177; 80048; 81001; 84703; 85025; 96361; 96374; 99283; Q9967; A4216; J2405

== ENCOUNTER 2025-09-17 00:24 | Emergency (ER) | payer SELFPAY ==
[2025-09-17 00:26] VITALS: BP 126/75; PULSE 85; RESP 18; TEMP 36.7; O2SAT 100; BMI 26.2
--- NOTE | 2025-09-17 00:32 | EDS_ITS ---
HPI HPI - GI History of Present Illness Chief Complaint: Abd Pain Informant: patient Abdominal Pain/Flank Pain Onset: Today Context: Gradual Onset Timing: Intermittent Quality: Stabbing (Shooting) Location: Epigastric and RUQ Worsened by: Nothing Relieved by: Nothing Nausea/Vomiting/Emesis GI Symptom: Positive for Nausea and Vomiting Quality: Positive for Nonbilious Episodes: 1 Diarrhea/Melena/Hematochezia GI Symptom: Negative for Diarrhea, Melena or Hematochezia Associated Symptoms Associated Symptoms: Negative for Dysuria, Frequency or Hematuria Narrative Narrative: Patient presents with abdominal pain that began today. Patient states it came on gradually. Patient states it is intermittent. Patient states it is mainly over the upper abdomen. Patient states it radiates around to her back. Patient states nothing makes it better and nothing makes it worse. Patient states she had 1 episode of nausea and vomiting. Patient denies any hematemesis or coffee- ground emesis. Patient denies any diarrhea, melena, or hematochezia. Patient denies any dysuria, frequency, or hematuria. Patient denies any fevers or chills. PFSH PFSH Medical History Wears glasses Former smoker Home Medications ?Medication ?Instructions ?Recorded ?Last Taken ?Type hydrocodone-acetaminophen 5-325mg 1 tab PO Q6H PRN PRN Pain 3 days 09/17/25 Unknown Rx 5mg-325mg #10 TABLETS ondansetron 4 mg disintegrating 4 mg PO Q8H PRN PRN Na usea #10 tabs 09/17/25 Unknown Rx tablet Allergy/AdvReac Type Severity Reaction Status Date / Time No Known Allergies Allergy Verified 09/17/25 00:25 Surgical History S/P laparoscopic cholecystectomy Hx of bilateral salpingectomy Previous section Social History Smoking Status: Former smoker ROS ROS ED Constitutional Constitutional ED: Denies chills or fever(s) Eyes Eyes: Denies blurry vision or change in vision ENT ENT ED: Denies rhinorrhea or sore throat Cardiovascular Cardiovascular: Denies chest pain or palpitations Respiratory/Chest Respiratory/Chest: Denies cough or dyspnea Gastrointestinal Gastrointestinal: Reports abdominal pain, nausea and vomiting; Denies diarrhea or melena Genitourinary Genitourinary ED: Denies dysuria or hematuria Musculoskeletal Musculoskeletal: Reports back pain; Denies neck pain Integumentary Denies abscess or rash Neurologic Neurologic: Denies headache(s) or weakness Allergic/Immunologic Allergic/Immunologic ED: Denies mouth swelling or urticaria EXAM Physical Exam Const Vital Signs: 09/17/25 00:26 09/17/25 02:27 Temperature 98.0 F Temperature Source Oral Pulse Rate 85 105 H Respiratory Rate 18 18 Blood Pressure 126/75 H 122/74 H Blood Pressure Mean 92 90 Pulse Ox 100 100 Oxygen Delivery Method Room Air Room Air Positive well nourished and well developed Constitutional Narrative: BMI is 26.2. General Appearance ED: well developed and NAD HEENT Reports moist mucous membranes Neck supple and no JVD Resp normal respiratory effort and clear to auscultation bilaterally Cardio regular rate and regular rhythm GI non-distended Palpation: soft and tender epigastric and RUQ; Negative for guarding or rebound tenderness present Extremity full ROM General Extremety ED: Negative for edema or tenderness General Extremity: Negative for edema Neuro CN's II-XII intact bilaterally, moves all extremities and no sensory deficits noted Sensorium / Orientation: alert Motor Exam: strength 5/5 throughout Psych mental status grossly normal MDM MDM MDM Narrative Medical decision making narrative: Differential diagnosis includes but is not limited to pancreatitis, peptic ulcer disease, duodenal ulcer, choledocholithiasis, bowel obstruction, perforation, urinary tract infection, , and anxiety. CBC will be obtained to assess for leukocytosis and anemia. Comprehensive metabolic profile will be obtained to assess for hepatic function, renal function, and electrolyte abnormality. Lipase will be obtained to assess for pancreatitis. Serum hCG will be obtained to assess for . Urinalysis will be obtained to assess for urinary tract infection and hematuria. CT scan of the abdomen and pelvis will be obtained to assess for bowel obstruction, perforation, pancreatitis, and choledocholithiasis. Lab Data Attestation: I reviewed the patient's lab results. Lab results narrative: CBC was reviewed. There is a mild leukocytosis of 15.8. The remainder is within normal limits. Comprehensive metabolic profile was reviewed. Glucose was mildly elevated at 119. The remainder was within normal limits. Lipase was reviewed and was normal at 17. Serum hCG was reviewed and was negative. Urinalysis was reviewed. Leukocyte esterase was 25. There are 10-25 white blood cells but 5-10 epithelial cells. There is 3+ bacteria. Labs: Laboratory Results - last 24 hr 09/17/25 09/17/25 01:03 01:08 WBC 15.8 H RBC 4.51 Hgb 12.5 Hct 37.8 MCV 83.8 MCH 27.7 MCHC 33.1 RDW Std Deviation 42.0 RDW Coeff of Kaci 13.7 Plt Count MPV 12.1 H Immature Gran % (Auto) 0.600 Neut % (Auto) 87.4 H Lymph % (Auto) 5.7 L [place] % (Auto) 5.3 Eos % (Auto) 0.7 Baso % (Auto) 0.3 Absolute Neuts (auto) 13.8 H Absolute Lymphs (auto) 0.90 Nucleated RBC % 0 Differential Comment SCANNED Platelet Estimate ADEQUATE Sodium 138 Potassium 3.8 Chloride 102 Carbon Dioxide 23.5 Anion Gap 13 BUN 11 Creatinine 0.89 Estim Creat Clear Calc 90.68 Est GFR (MDRD) Non-Af 89 BUN/Creatinine Ratio 12.4 Glucose 119 H Calcium 8.8 Total Bilirubin 0.28 AST 28 ALT 16 Alkaline Phosphatase 40 Total Protein 6.7 Albumin 4.1 Globulin 2.7 Albumin/Globulin Ratio 1.5 Lipase 17 Serum , Qual NEGATIVE Urine Color Yellow Urine Clarity Clear Urine pH 6.0 Ur Specific [place] 1.020 Urine Protein 15 H Urine Glucose (UA) Normal Urine Ketones Negative Urine Occult Blood 250 H Urine Nitrite Negative Urine Bilirubin Negative Urine Urobilinogen Normal Ur Leukocyte Esterase 25 H Urine RBC 0-5 SEEN Urine WBC 10-25 SEEN Ur Squamous Epith Cells 5-10 SEEN Urine Bacteria 3+ Hyaline Casts 0 SEEN Urine Mucus 3+ Radiography Diagnostic Testing: Clinical Impression(s) from Imaging Studies Abdomen/Pelvis CT 09/17/25 01:02 IMPRESSION: Diffuse colonic diverticulosis. Fluid-filled stomach and small bowels, probably gastroenteritis without perforation or pneumatosis intestinalis. Fluid-filled proximal colon, probably secondary to diarrhea/enteritis. Prior cholecystectomy. Bilateral chronic changes of sacroiliitis, unchanged. Reading Location: [place] [id number] CT scan of the abdomen and pelvis was obtained. There is fluid-filled stomach and small bowels. There is likely from gastroenteritis. There is no evidence of perforation or pneumatosis. This was interpreted by the radiologist. I also independently reviewed the images and did not see any evidence of bowel obstruction or perforation. There is no evidence of choledocholithiasis. Additional Tests and Interventions Additional Tests or Interventions: Urine culture was ordered. Treatment and Re-Evaluation :: Patient was given IV fluids, morphine, and Zofran. Patient was given repeat dose of morphine and Zofran. Patient was advised of her findings. Patient was advised that this is most likely a viral illness. Patient was instructed to start with a liquid diet and advance as tolerated. Patient was given prescriptions for Zofran and a short course of [place]. Patient was instructed to follow-up with her primary care physician in 5 to 7 days. Patient was instructed to return if worse in any way. Patient understood and was agreeable with the plan. All questions were answered. Discharge Plan Triage Chief Complaint: Abd Pain ED Provider: Elmer Noel Dx/Rx/DC Orders Clinical Impression: Abdominal pain, Nausea and vomiting Instructions: ED Abdominal Pain Unkn Cause Fem, ED Gastroenteritis, Viral (Adult) Prescriptions: New hydrocodone-acetaminophen 5-325 mg tablet 1 tab PO Q6H PRN PRN (Reason: Pain) 3 Days Qty: 10 0RF ondansetron 4 mg tablet,disintegrating 4 mg PO Q8H PRN PRN (Reason: Nausea) Qty: 10 0RF Primary Care Provider: Care Physician,No Primary Referrals: Duane Shipman MD [Med Staff - Substance Addiction Coordinator, Family Practice] - 5-7 Days Care Physician,No Primary [Primary Care Provider, Medical] Print Language: Sinhala Disposition Disposition: Home, Self Care
--- NOTE | 2025-09-17 01:02 | CT_ITS ---
PROCEDURE: ABDOMEN/PELVIS W IV CONT ONLY 09/17/2025 REASON FOR EXAM: ABDOMINAL PAIN TECHNIQUE: Procedure Code: [id number] Modality: CT Procedure: ABDOMEN/PELVIS W IV CONT ONLY Coronal and Sagittal reconstruction series were provided. CONTRAST: OMNIPAQUE 350 VOLUME: 100 mL One or more dose reduction techniques were used (e.g., Automated exposure control, adjustment of the mA and/or kV according to patient size, use of iterative reconstruction technique. RADIATION DOSE SUMMARY: CTDlvol: 10.02 mGy DLP: 519 mGycm COMPARISON: CT scan on 05/09/2025. FINDINGS: Diffuse colonic diverticulosis. Fluid-filled stomach and small bowels, probably gastroenteritis without perforation or pneumatosis intestinalis. Fluid-filled proximal colon, probably secondary to diarrhea/enteritis. Prior cholecystectomy. Bilateral chronic changes of sacroiliitis, unchanged. The visualized lung bases are unremarkable. Normal liver. Normal extrahepatic biliary system. Normal spleen. Normal pancreas. Normal bilateral adrenal glands. Normal size of the right kidney. There is no right renal mass. There are no right renal calculi. There is no right hydronephrosis. Normal visualized right ureter. Normal size of the left kidney. There is no left renal mass. There are no left renal calculi. There is no left hydronephrosis. Normal visualized left ureter. The appendix is visualized and appears normal. There is no demonstrated peritoneal fluid. Normal abdominal aorta. Normal inferior vena cava. Normal retroperitoneum. Normal urinary bladder. There is no pelvic mass lesion or lymphadenopathy. There is no pelvic fluid. Normal abdominal wall. CT/Abdomen/Pelvis W IV Cont ONLY IMPRESSION: Diffuse colonic diverticulosis. Fluid-filled stomach and small bowels, probably gastroenteritis without perfora tion or pneumatosis intestinalis. Fluid-filled proximal colon, probably secondary to diarrhea/enteritis. Prior cholecystectomy. Bilateral chronic changes of sacroiliitis, unchanged. Reading [facility]
[2025-09-17 01:16] LABS: Color, Urine Yellow (Yellow); Glucose, Dipstick Normal (Normal); Ketone-Dipstick Negative (Negative); Leukocyte Esterase-Dipstick 25 /ul (Negative); Nitrite-Dipstick Negative (Negative); Occult Blood-Urine 250 /ul (Negative); Protein-Dipstick 15 mg/dl (Negative); Specific Gravity, Urine 1.020 (1.002-1.030); Urine Bilirubin Dipstick Negative (Negative)
[2025-09-17 01:18] LABS: Hematocrit 37.8 % (37-47); Hemoglobin 12.5 g/dL (12.0-15.0); Immature Granulocytes Count 0.090 X10^3/uL (0.0-0.0); Mean Corp Hgb Conc 33.1 g/dL (32-36); Mean Corpuscular Volume 83.8 fL (81-99); Mean Platelet Vol. 12.1 fl (6.2-12.0); NRBC Flagged by Analyzer 0 % (0-5); POSITIVE COUNT YES; RBC Distribution Width CV 13.7 % (11.6-14.6); RBC Distribution Width SD 42.0 fl (35.1-43.9); Red Blood Count 4.51 M/mm3 (4.2-5.4); White Blood Count 15.8 K/mm3 (4.4-11.0)
--- OUTSIDE RECORDS SUMMARY | 2025-09-17 01:18 | XMS RPT_ITS | CCD ---
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 Ordered By: Elmer Noel on 05-09-2025 Anion gap [Moles/Vol] 14 mmol/L 5-15 [facility] Automated lymphocyte count a s percentage of total leukocytesOrdered By: Elmer Noel on 05-09-2025 Lymphocytes/100 WBC Auto (Unsp spec) 21.3 % 19-41 [facility] BUN/creatinine ratioOrdered By: Elmer Noel on 05-09-2025 Urea nitrogen/Creatinine [Mass ratio] 13.3 mg/mg 10-20 [facility] Basic Metabolic Profile (BMP )on 05-09-2025 BUN/CRE 13.3 RATIO Normal 10-20 [facility] Comment on above: Performed By: #### L 500.2500, L100.0100 #### [facility] [address] [place], [address] Calcium [Mass/Vol] 9.3 mg/dL Normal 7.6-11.0 [facility] Comment on above: Performed By: #### L 500.2500, L100.0100 #### [facility] [address] [place], [address] Chloride [Moles/Vol] 100 mmol/L Normal 98-108 [facility] Comment on above: Performed By: #### L 500.2500, L100.0100 #### [facility] [address] [place], [address] CO2 [Moles/Vol] 24.0 mmol/L Normal 21.0-32.0 [facility] Comment on above: Performed By: #### L 500.2500, L100.0100 #### [facility] [address] [place], [address] Creatinine [Mass/Vol] 0.74 mg/dL Normal 0.70-1.20 [facility] Comment on above: Performed By: #### L 500.2500, L100.0100 #### [facility] [address] [place], [address] ECRCL 108.69 ml/min Normal 50-250 [facility] Comment on above: Performed By: #### L 500.2500, L100.0100 #### [facility] [address] [place], [address] GAP 14 Normal 5-15 [facility] Comment on above: Performed By: #### L 500.2500, L100.0100 #### [facility] [address] [place], [address] GFR/1.73 sq M.predicted among non-blacks MDRD (S/P/Bld) [Vol rate/Area] 112 mL/min/{1.73_m2} Normal >60 [facility] Comment on above: Result Comment: mL/m in/1.73m2 CKD-EPI Creatinine Equation (2020) Performed By: #### L 500.2500, L100.0100 #### [facility] [address] [place], [address] Glucose [Mass/Vol] 84 mg/dL Normal 70-99 [facility] Comment on above: Performed By: #### L 500.2500, L100.0100 #### [facility] [address] [place], [address] Potassium [Moles/Vol] 3.6 mmol/L Normal 3.3-5.1 [facility] Comment on above: Performed By: #### L 500.2500, L100.0100 #### [facility] [address] [place], [address] Sodium [Moles/Vol] 138 mmol/L Normal 133-145 [facility] Comment on above: Performed By: #### L 500.2500, L100.0100 #### [facility] [address] [place], [address] Urea nitrogen [Mass/Vol] 10 mg/dL Normal 4-19 [facility] Comment on above: Performed By: #### L 500.2500, L100.0100 #### [facility] [address] [place], [address] Basophil percentageOrdered B y: Elmer Noel on 05-09-2025 Basophils/100 WBC (Bld) 0.5 % 0-1 [facility] CBC W/Diff, Automatedon Absolute Lymph 2.24 X10 3/uL Normal 0.83-4.51 [facility] Comment on above: Performed By: #### L 500.2500, L100.0100 #### [facility] [address] [place], [address] Absolute Neut 7.4 X10 3/uL Normal 2.0-7.7 [facility] Comment on above: Performed By: #### L 500.2500, L100.0100 #### [facility] [address] [place], [address] Basophils/100 WBC (Bld) 0.5 % Normal 0-1 [facility] Comment on above: Performed By: #### L 500.2500, L100.0100 #### [facility] [address] [place], [address] Eosinophils/100 WBC (Bld) 1.0 % Normal 0-5 [facility] Comment on above: Performed By: #### L 500.2500, L100.0100 #### [facility] [address] [place], [address] Erythrocyte distribution width (RBC) [Ratio] 13.5 % Normal 11.6-14.6 [facility] Comment on above: Performed By: #### L 500.2500, L100.0100 #### [facility] [address] [place], [address] Hematocrit (Bld) [Volume fraction] 39.0 % Normal 37-47 [facility] Comment on above: Performed By: #### L 500.2500, L100.0100 #### [facility] [address] [place], [address] Hemoglobin (Bld) [Mass/Vol] 12.7 g/dL Normal 12.0-15.0 [facility] Comment on above: Performed By: #### L 500.2500, L100.0100 #### [facility] [address] [place], [address] IG% 0.500 Normal 0.0-0.9 [facility] Comment on above: Result Comment: IG% - Immature Granulocytes (promyelocytes, myelocytes and metamyelocytes) > 1% indicates that a LEFT SHIFT is Present. Performed By: #### L 500.2500, L100.0100 #### [facility] [address] [place], [address] Lymphocytes/100 WBC (Bld) 21.3 % Normal 19-41 [facility] Comment on above: Performed By: #### L 500.2500, L100.0100 #### [facility] [address] [place], [address] MCH (RBC) [Entitic mass] 27.3 pg Normal 27.0-32.0 [facility] Comment on above: Performed By: #### L 500.2500, L100.0100 #### [facility] [address] [place], [address] MCHC (RBC) [Mass/Vol] 32.6 g/dL Normal 32-36 [facility] Comment on above: Performed By: #### L 500.2500, L100.0100 #### [facility] [address] [place], [address] MCV (RBC) [Entitic vol] 83.7 fL Normal 81-99 [facility] Comment on above: Performed By: #### L 500.2500, L100.0100 #### [facility] [address] [place], [address] Monocytes/100 WBC (Bld) 6.4 % Normal 0-10 [facility] Comment on above: Performed By: #### L 500.2500, L100.0100 #### [facility] [address] [place], [address] Neutrophils/100 WBC (Bld) 70.3 % High 47-70 [facility] Comment on above: Performed By: #### L 500.2500, L100.0100 #### [facility] [address] [place], [address] Nucleated RBC (Bld) [#/Vol] 0 10*3/uL Normal 0-5 [facility] Comment on above: Performed By: #### L 500.2500, L100.0100 #### [facility] [address] [place], [address] Platelet mean volume (Bld) [Entitic vol] 10.8 fL Normal 6.2-12.0 [facility] Comment on above: Performed By: #### L 500.2500, L100.0100 #### [facility] [address] [place], [address] Platelets (Bld) [#/Vol] 359 10*3/uL Normal 150-450 [facility] Comment on above: Performed By: #### L 500.2500, L100.0100 #### [facility] [address] [place], [address] RBC (Bld) [#/Vol] 4.66 10*6/uL Normal 4.2-5.4 [facility] Comment on above: Performed By: #### L 500.2500, L100.0100 #### [facility] [address] [place], [address] RDW SD 41.4 fl Normal 35.1-43.9 [facility] Comment on above: Performed By: #### L 500.2500, L100.0100 #### [facility] [address] [place], [address] WBC (Bld) [#/Vol] 10.5 10*3/uL Normal 4.4-11.0 [facility] Comment on above: Performed By: #### L 500.2500, L100.0100 #### [facility] [address] [place], [address] Carbon dioxide, total [Moles /volume] in Central venous bloodOrdered By: Elmer Noel on 05-09-2025 CO2 [Moles/Vol] 24.0 mmol/L 21.0-32.0 [facility] Chloride assayOrdered By: Nitesh Noel on 05-09-2025 Chloride [Moles/Vol] 100 mmol/L 98-108 [facility] Emergency Department Summary on 05-09-2025 Emergency Department Summary [facility] Medical Records Department [address] [place] [address] Emergency Department Summary 05/09/25 MR#: [id number] Acct: [id number] Name: VIKI GARCIA Rep #: [id number] : 1995 29 From: Elmer Schwiger DO PCP: Care Physician,No Primary Status:REG ER Location: ED HPI HPI - GI History of Present Illness Chief Complaint: Abd Pain Informant: patient Abdominal Pain/Flank Pain Onset: Yesterday Context: Gradual Onset Timing: Continuous Quality: Aching Location: RLQ Worsened by: Movement and - (Walking) Relieved by: Nothing Nausea/Vomiting/Emes is GI Symptom: Positive for Nausea; Negative for Vomiting Diarrhea/Melena/Barrett tochezia GI Symptom: Negative for Diarrhea, Melena or Hematochezia Associated Symptoms Associated Symptoms: Negative for Dysuria, Frequency or Hematuria LMP: Approximately 1 week ago Narrative Narrative: Patient presents with abdominal pain that began yesterday. Patient states it came on gradually. Patient states it has been constant. Patient describes it as aching. Patient states she has had similar episodes in the past that have resolved on their own. The patient states her pain is mainly over the right lower abdomen. Patient states it is worse with movement and with walking. Patient admits to some nausea but denies any vomiting. Patient admits to decreased appetite. Patient states her last meal was around 6 PM last evening. Patient denies any diarrhea, melena, hematochezia. Patient dates her last menstrual period was approximately 1 week ago. PFSH PFS Medical History Wears glasses Former smoker Home Medications ???Medication ???Instructions ???Recorded ???Last Taken ???Type NK 05/09/25 Unknown History Allergy/AdvReac Type Severity Reaction Status Date / Time No Known Allergies Allergy Verified 05/09/25 13:45 Surgical History S/P laparoscopic cholecystectomy Hx of bilateral salpingectomy Previous section Social History Smoking Status: Former smoker ROS ROS ED Constitutional Constitutional ED: Denies chills or fever(s) Eyes Eyes: Denies blurry vision or change in vision ENT ENT ED: Denies rhinorrhea or sore throat Cardiovascular Cardiovascular: Denies chest pain or palpitations Respiratory/Chest Respiratory/Chest: Denies cough or dyspnea Gastrointestinal Gastrointestinal: Reports abdominal pain and nausea; Denies diarrhea, melena or vomiting Genitourinary Genitourinary ED: Denies dysuria or hematuria Musculoskeletal Musculoskeletal: Reports back pain and neck pain Integumentary Denies abscess or rash Neurologic Neurologic: Reports headache(s); Denies weakness Allergic/Immunologic Allergic/Immunologic ED: Denies mouth swelling or urticaria EXAM Physical Exam Const Vital Signs: 05/09/25 13:44 Temperature 98.4 F Temperature Source Oral Pulse Rate 87 Respiratory Rate 15 Blood Pressure 128/80 H Blood Pressure Mean 96 Pulse Ox 100 Oxygen Delivery Method Room Air Positive well nourished and well developed General Appearance ED: well developed and NAD HEENT Reports moist mucous membranes Neck supple and no JVD Resp normal respiratory effort and clear to auscultation bilaterally Cardio regular rate and regular rhythm GI non-distended Palpation: soft and tender RLQ; Negative for guarding or rebound tenderness present Extremity full ROM General Extremety ED: Negative for edema or tenderness General Extremity: Negative for edema Neuro CN's II-XII intact bilaterally, moves all extremities and no sensory deficits noted Sensorium / Orientation: alert Motor Exam: strength 5/5 throughout Psych mental status grossly normal MDM MDM MDM Narrative Medical decision making narrative: Differential diagnosis includes appendicitis, ureteral calculus, ovarian cyst, ectopic , viral illness, and electrolyte abnormality. CBC will be obtained to assess for leukocytosis and anemia. Basic metabolic profile will be obtained to assess for electrolyte abnormality and renal function. Serum HCG will be obtained to assess for . CT scan of the abdomen and pelvis will be obtained to assess for appendicitis and ureteral calculus. Lab Data Attestation: I reviewed the patient's lab results. Lab results narrative: CBC was reviewed and was within normal limits. Basic metabolic profile was reviewed and was within normal limits. Serum hCG was reviewed and was negative. Labs: Laboratory Results - last 24 hr 05/09/25 13:55 WBC 10.5 RBC 4.66 Hgb 12.7 Hct 39.0 MCV 83.7 MCH 27.3 MCHC 32.6 RDW Std Deviation 41.4 RDW Coeff of Kaci 13.5 Plt Count 359 MPV 10 (more content not included)... Normal [facility] Eosinophil percentageOrdered By: Elmer Noel on 05-09-2025 Eosinophils/100 WBC (Bld) 1.0 % 0-5 [facility] Erythrocyte distribution wid th ratioOrdered By: Elmer Noel on 05-09-2025 Erythrocyte distribution width (RBC) [Ratio] 13.5 % 11.6-14.6 [facility] Erythrocyte distribution wid th standard deviationOrdered By: Elmer Noel on 05-09-2025 Erythrocyte distribution width (RBC) [Ratio] 41.4 fl 35.1-43.9 [facility] Glomerular filtration rate ( GFR) estimation/1.73 sq m using serum, plasma, or whole bOrdered By: Elmer Noel on 05-09-2025 GFR/1.73 sq M.predicted among non-blacks MDRD (S/P/Bld) [Vol rate/Area] 112 mL/min/{1.73_m2} >60 [facility] Comment on above: mL/min/1.73m2 CKD-EP I Creatinine Equation (2020) Hematocrit Auto (Bld) [Volum e fraction]Ordered By: Elmer Noel on 05-09-2025 Hematocrit (Bld) [Volume fraction] 39.0 % 37-47 [facility] Hemoglobin measurementOrdere d By: Elmer Noel on 05-09-2025 Hemoglobin (Bld) [Mass/Vol] 12.7 g/dL 12.0-15.0 [facility] Immature granulocytes/100 WB C Auto (Bld)Ordered By: Elmer Noel on 05-09-2025 Immature granulocytes/100 WBC (Bld) 0.500 % 0.0-0.9 [facility] Comment on above: IG% - Immature Granu locytes (promyelocytes, myelocytes and metamyelocytes) > 1% indicates that a LEFT SHIFT is Present. MCV (mean corpuscular volume ) determinationOrdered By: Elmer Noel on 05-09-2025 MCV (RBC) [Entitic vol] 83.7 fL 81-99 [facility] Mean corpuscular hemoglobin (MCH) determinationOrdered By: Elmer Noel on 05-09-2025 MCH (RBC) [Entitic mass] 27.3 pg 27.0-32.0 [facility] Mean corpuscular hemoglobin concentration (MCHC) determinationOrdered By: Elmer Noel on 05-09-2025 MCHC (RBC) [Mass/Vol] 32.6 g/dL 32-36 [facility] Mean platelet volume determi nationOrdered By: Elmer Noel on 05-09-2025 Platelet mean volume (Bld) [Entitic vol] 10.8 fL 6.2-12.0 [facility] Monocyte percentageOrdered B y: Elmer Noel on 05-09-2025 Monocytes/100 WBC (Bld) 6.4 % 0-10 [facility] Neutrophil percentageOrdered By: Elmer Noel on 05-09-2025 Neutrophils/100 WBC (Bld) 70.3 % High 47-70 [facility] Nucleated red blood cell per centageOrdered By: Elmer Noel on 05-09-2025 Nucleated RBC/100 WBC (Bld) [Ratio] 0 % 0-5 [facility] Platelet countOrdered By: Nitesh Noel on 05-09-2025 Platelets (Bld) [#/Vol] 359 10*3/uL 150-450 [facility] Potassium measurement (mass/ volume)Ordered By: Elmer Noel on 05-09-2025 Potassium (Unsp spec) [Mass/Vol] 3.6 mmol/L 3.3-5.1 [facility] ,Serum,hCG Quali.on 05-09-2025 HCG, SERUM QUAL Negative Normal [facility] Comment on above: Performed By: #### L 700.6800 #### [facility] [address] [place] [address], [address] RBC Auto (Bld) [#/Vol]Ordere d By: Elmer Noel on 05-09-2025 RBC (Bld) [#/Vol] 4.66 10*6/uL 4.2-5.4 [facility] Serum beta-hCG test, qualita tiveOrdered By: Elmer Noel on 05-09-2025 Beta HCG ( test) Ql Negative [facility] Serum creatinine measurement (mass/volume)Ordered By: Elmer Noel on 05-09-2025 Creatinine [Mass/Vol] 0.74 mg/dL 0.70-1.20 [facility] Serum glucose measurement (m ass/volume)Ordered By: Elmer Noel on 05-09-2025 Glucose [Mass/Vol] 84 mg/dL 70-99 [facility] Serum or plasma calcium glenn urement (mass/volume)Ordered By: Elmer Noel on 05-09-2025 Calcium [Mass/Vol] 9.3 mg/dL 7.6-11.0 [facility] Serum or plasma urea nitroge n measurement (mass/volume)Ordered By: Elmer Noel on 05-09-2025 Urea nitrogen [Mass/Vol] 10 mg/dL 4-19 [facility] Sodium levelOrdered By: Elmer Noel on 05-09-2025 Sodium [Moles/Vol] 138 mmol/L 133-145 [facility] Urinalysis, Completeon 05-09 RBC 0-5 SEEN Normal 0-5 [facility] Comment on above: Order Comment: CLEAN CATCH Performed By: #### L 400.0001 #### [facility] [address] [place], [address] WBC 0-5 SEEN Normal 0-5 [facility] Comment on above: Order Comment: CLEAN CATCH Performed By: #### L 400.0001 #### [facility] [address] [place], [address] EPI,SQUAMOUS 0-5 SEEN Normal 5-10 [facility] Comment on above: Order Comment: CLEAN CATCH Performed By: #### L 400.0001 #### [facility] [address] [place], [address] BACTERIA 0 SEEN Normal None Seen [facility] Comment on above: Order Comment: CLEAN CATCH Performed By: #### L 400.0001 #### [facility] [address] [place], [address] Mucus Ql (Urine sed) 0 SEEN Normal [facility] Comment on above: Order Comment: CLEAN CATCH Performed By: #### L 400.0001 #### [facility] [address] [place], [address] White blood cell (WBC) count Ordered By: Elmer Noel on 05-09-2025 WBC (Bld) [#/Vol] 10.5 10*3/uL 4.4-11.0 [facility] Basophil percentageon 2021 Bilirubin [Mass/Vol] 0.30 mg/dL 0.20-1.00 [facility] Work Phone: Comment on above: For patients on eltr ombopag therapy, use of Dimension [place] TBIL is not recommended. Protein [Mass/Vol] 7.9 g/dL 6.4-8.2 [facility] Work Phone: Direct bilirubinon 2 Bilirubin.direct [Mass/Vol] 0.09 mg/dL 0.00-0.30 [facility] Work Phone: Laboratory - Chemistry and C hemistry - challengeon 10-01-2022 ALP [Catalytic activity/Vol] 41 U/L 45-117 [facility] Work Phone: ALT [Catalytic activity/Vol] 26 U/L 13-56 [facility] Work Phone: Globulin (S) [Mass/Vol] 3.9 g/dL 2.2-4.2 [facility] Work Phone: Serum or plasma albumin glenn urement (mass/volume)on 10-01-2022 Albumin [Mass/Vol] 4.0 g/dL 3.2-5.0 [facility] Work Phone: Thin prep Papanicolaou smear with manual screeningon 10-01-2022 Thin prep Papanicolaou smear with manual screening 11 U/L 15-37 [facility] Work Phone: Absolute lymphocyte counton 09-24-2022 Lymphocytes Auto (Unsp spec) [#/Vol] 2.22 10*3/uL 0.83-4.51 [facility] Work Phone: Basophil percentageon 2021 Basophil percentage 0-5 SEEN /hpf 0-5 [facility] Work Phone: Basophils/100 WBC (Bld) 0.5 % 0-1 [facility] Work Phone: Bilirubin [Mass/Vol] 0.20 mg/dL 0.20-1.00 [facility] Work Phone: Comment on above: For patients on eltr ombopag therapy, use of Dimension [place] TBIL is not recommended. Chloride [Moles/Vol] 108 mmol/L 98-107 [facility] Work Phone: Eosinophils/100 WBC (Bld) 1.5 % 0-5 [facility] Work Phone: Glucose [Mass/Vol] 100 mg/dL 74-106 [facility] Work Phone: [phone] Comment on above: Fasting Glucose resu lt from 100 to 125 mg/dL suggests IMPAIRED HOMEOSTASIS per A.D.A. criteria. Neutrophils (Bld) [#/Vol] 6.1 10*3/uL 2.0-7.7 [facility] Work Phone: Neutrophils/100 WBC (Bld) 66.6 % 47-70 [facility] Work Phone: Potassium [Moles/Vol] 3.7 mmol/L 3.5-5.1 [facility] Work Phone: Comment on above: Slight Hemolysis, Re sult may be falsely increased. Protein [Mass/Vol] 7.4 g/dL 6.4-8.2 [facility] Work Phone: Sodium [Moles/Vol] 141 mmol/L 136-145 [facility] Work Phone: WBC (Bld) [#/Vol] 9.1 10*3/uL 4.4-11.0 [facility] Work Phone: Bilirubin Test strip Ql (U)o n 09-24-2022 Bilirubin Ql (U) Negative Negative [facility] Work Phone: Blood erythrocytes count (nu mber/volume)on 09-24-2022 RBC (Bld) [#/Vol] 4.76 10*6/uL 4.2-5.4 [facility] Work Phone: Blood hemoglobin measurement (mass/volume)on 09-24-2022 Hemoglobin (Bld) [Mass/Vol] 13.1 g/dL 12.0-15.0 [facility] Work Phone: Blood lymphocytes/100 leukoc yteson 09-24-2022 Lymphocytes/100 WBC (Bld) 24.3 % 19-41 [facility] Work Phone: Blood monocytes/100 leukocyt eson 09-24-2022 Monocytes/100 WBC (Bld) 6.8 % 0-10 [facility] Work Phone: Blood platelet mean volumeon 09-24-2022 Platelet mean volume (Bld) [Entitic vol] 10.2 fL 6.2-12.0 [facility] Work Phone: Determination of erythrocyte mean corpuscular volume (MCV)on 09-24-2022 MCV (RBC) [Entitic vol] 86.1 fL 81-99 [facility] Work Phone: Hematocrit Auto (Bld) [Volum e fraction]on 09-24-2022 Hematocrit (Bld) [Volume fraction] 41.0 % 37-47 [facility] Work Phone: Ketones Test strip Ql (U)on 09-24-2022 Ketones Ql (U) Negative Negative [facility] Work Phone: Laboratory - Chemistry and C hemistry - challengeon 09-24-2022 HCG ( test) Ql (U) Negative [facility] Work Phone: Comment on above: Very dilute urine sp ecimens, as indicated by a low specificgravity, may not contain appeals representative levels of hCG. If is still suspected, a first morning urinespecimen should be collected 48 hours later and tested. ALP [Catalytic activity/Vol] 37 U/L 45-117 [facility] Work Phone: ALT [Catalytic activity/Vol] 57 U/L 13-56 [facility] Work Phone: CO2 [Moles/Vol] 31.0 mmol/L 21.0-32.0 [facility] Work Phone: Globulin (S) [Mass/Vol] 3.5 g/dL 2.2-4.2 [facility] Work Phone: Lipase [Catalytic activity/Vol] 83 U/L 73-393 [facility] Work Phone: Urea nitrogen/Creatinine [Mass ratio] 19.9 mg/mg 10-20 [facility] Work Phone: Laboratory - Hematology and Cell countson 09-24-2022 Erythrocyte distribution width (RBC) [Entitic vol] 44.6 fL 35.1-43.9 [facility] Work Phone: Erythrocyte distribution width (RBC) [Ratio] 14.0 % 11.6-14.6 [facility] Work Phone: Immature granulocytes/100 WBC (Bld) 0.300 % 0.0-0.9 [facility] Work Phone: Comment on above: IG% - Immature Granu locytes (promyelocytes, myelocytes and metamyelocytes) > 1% indicates that a LEFT SHIFT is Present. MCH (RBC) [Entitic mass] 27.5 pg 27.0-32.0 [facility] Work Phone: Nucleated RBC/100 WBC (Bld) [Ratio] 0 % 0-5 [facility] Work Phone: MCHC Auto (RBC) [Mass/Vol]on 09-24-2022 MCHC (RBC) [Mass/Vol] 32.0 g/dL 32-36 [facility] Work Phone: Mucus LM Ql (Urine sed)on Mucus Ql (Urine sed) 0 SEEN /hpf [facility] Work Phone: Nitrite Test strip Ql (U)on 09-24-2022 Nitrite Ql (U) Negative Negative [facility] Work Phone: No Panel Informationon 09-24 Estimated Creatinine Clearance Calc 94.21 ml/min [facility] Work Phone: Estimated GFR (MDRD) Amer 109 mL/min >60 [facility] Work Phone: Comment on above: GFR Calc Estimated GFR (MDRD) Non-Af Amer 90 mL/min >60 [facility] Work Phone: Comment on above: Non- GFR Calc Platelets bldon 09-24-2022 Platelets (Bld) [#/Vol] 355 10*3/uL 150-450 [facility] Work Phone: Protein Test strip Ql (U)on 09-24-2022 Protein Ql (U) 15 mg/dl Negative [facility] Work Phone: Serum or plasma albumin glenn urement (mass/volume)on 09-24-2022 Albumin [Mass/Vol] 3.9 g/dL 3.2-5.0 [facility] Work Phone: Serum or plasma albumin/glob ulin mass ratioon 09-24-2022 Albumin/Globulin [Mass ratio] 1.1 {ratio} 0.9-2.4 [facility] Work Phone: Serum or plasma calcium glenn urement (mass/volume)on 09-24-2022 Calcium [Mass/Vol] 9.2 mg/dL 8.5-10.1 [facility] Work Phone: Serum or plasma creatinine m easurement (mass/volume)on 09-24-2022 Creatinine [Mass/Vol] 0.80 mg/dL 0.55-1.02 [facility] Work Phone: Comment on above: The validity of the calculated GFR & GFRAA in patients over 70 years has not been determined. Clinical correlation is essential. Serum or plasma urea nitroge n measurement (mass/volume)on 09-24-2022 Urea nitrogen [Mass/Vol] 16 mg/dL 7-18 [facility] Work Phone: Squamous epithelial cells de tection in urine sediment by light microscopyon 09-24-2022 Epithelial cells.squamous LM Ql (Urine sed) 0-5 SEEN /hpf 5-10 [facility] Work Phone: Thin prep Papanicolaou smear with manual screeningon 09-24-2022 Thin prep Papanicolaou smear with manual screening 58 U/L 15-37 [facility] Work Phone: Comment on above: Slight Hemolysis, Re sult may be falsely increased. Thin prep Papanicolaou smear with manual screening 2 5-15 [facility] Work Phone: Urine blood detectionon -2 -2021 RBC Ql (U) 250 /ul Negative [facility] Work Phone: RBC Ql (U) 50-100 SEEN /hpf 0-5 [facility] Work Phone: Urine clarityon 09-24-2022 Clarity (U) Clear Clear [facility] Work Phone: Urine color determinationon 09-24-2022 Color (U) Yellow Yellow [facility] Work Phone: Urine glucose detectionon Glucose Ql (U) Normal mg/dl Normal [facility] Work Phone: Urine leukocyte esterase det ection by dipstickon 09-24-2022 Leukocyte esterase Test strip Ql (U) 25 /ul Negative [facility] Work Phone: Urine pHon 09-24-2022 pH (U) 6.0 [pH] 5.0 - 8.0 [facility] Work Phone: Urine sediment bacteria coun t by microscopy (number/high power field)on 09-24-2022 Bacteria LM.HPF (Urine sed) [#/Area] 0 /[HPF] None Seen [facility] Work Phone: Urine specific gravity measu rementon 09-24-2022 Specific gravity (U) [Rel density] 1.020 1.002-1.030 [facility] Work Phone: Urobilinogen Auto test strip Ql (U)on 09-24-2022 Urobilinogen Ql (U) Normal mg/dl Normal [facility] Work Phone: Basophil percentageon 2021 WBC (Bld) [#/Vol] 8.8 10*3/uL 4.4-11.0 [facility] Work Phone: Blood erythrocytes count (nu mber/volume)on 08-20-2022 RBC (Bld) [#/Vol] 4.76 10*6/uL 4.2-5.4 [facility] Work Phone: Blood hemoglobin measurement (mass/volume)on 08-20-2022 Hemoglobin (Bld) [Mass/Vol] 13.0 g/dL 12.0-15.0 [facility] Work Phone: Blood platelet mean volumeon 08-20-2022 Platelet mean volume (Bld) [Entitic vol] 11.1 fL 6.2-12.0 [facility] Work Phone: Determination of erythrocyte mean corpuscular volume (MCV)on 08-20-2022 MCV (RBC) [Entitic vol] 82.1 fL 81-99 [facility] Work Phone: Hematocrit Auto (Bld) [Volum e fraction]on 08-20-2022 Hematocrit (Bld) [Volume fraction] 39.1 % 37-47 [facility] Work Phone: Laboratory - Chemistry and C hemistry - challengeon 08-20-2022 HCG ( test) Ql (U) Negative [facility] Work Phone: Comment on above: Very dilute urine sp ecimens, as indicated by a low specificgravity, may not contain appeals representative levels of hCG. If is still suspected, a first morning urinespecimen should be collected 48 hours later and tested. Laboratory - Hematology and Cell countson 08-20-2022 Erythrocyte distribution width (RBC) [Entitic vol] 40.4 fL 35.1-43.9 [facility] Work Phone: Erythrocyte distribution width (RBC) [Ratio] 13.6 % 11.6-14.6 [facility] Work Phone: MCH (RBC) [Entitic mass] 27.3 pg 27.0-32.0 [facility] Work Phone: MCHC Auto (RBC) [Mass/Vol]on 08-20-2022 MCHC (RBC) [Mass/Vol] 33.2 g/dL 32-36 [facility] Work Phone: Platelets bldon 08-20-2022 Platelets (Bld) [#/Vol] 259 10*3/uL 150-450 [facility] Work Phone: Vital Signs Date Time Vital Sign Value Performing Clinician Lg jansen 05-09-2025 17:02-0400 Body temperature 98.4 [degF] No Primary Care Physician [facility] 05-09-2025 17:02-0400 Diastolic blood pressure 73 mm[Hg] No Primary Care Physician [facility] 05-09-2025 17:02-0400 Heart rate 68 /min No Primary Care Physician [facility] 05-09-2025 17:02-0400 Respiratory rate 18 /min No Primary Care Physician [facility] 05-09-2025 17:02-0400 SaO2% (BldA) [Mass fraction] 100 % No Primary Care Physician [facility] 05-09-2025 17:02-0400 Systolic blood pressure 111 mm[Hg] No Primary Care Physician [facility] 05-09-2025 13:44-0400 Body height 165.1 cm No Primary Care Physician [facility] 05-09-2025 13:44-0400 Body mass index (BMI) [Ratio] 25.9 kg/m2 No Primary Care Physician [facility] 05-09-2025 13:44-0400 Body weight 70.76 kg No Primary Care Physician [facility] 10-07-2022 18:32-0500 Body temperature 98.3 [degF] No Primary Care Physician [facility] Work Phone: 10-07-2022 18:32-0500 Diastolic blood pressure 70 mm[Hg] No Primary Care Physician [facility] Work Phone: 10-07-2022 18:32-0500 Heart rate 95 /min No Primary Care Physician [facility] Work Phone: 10-07-2022 18:32-0500 Respiratory rate 16 /min No Primary Care Physician [facility] Work Phone: 10-07-2022 18:32-0500 SaO2% (BldA) [Mass fraction] 99 % No Primary Care Physician [facility] Work Phone: 10-07-2022 18:32-0500 Systolic blood pressure 114 mm[Hg] No Primary Care Physician [facility] Work Phone: 10-07-2022 13:16-0500 Body height 165.1 cm No Primary Care Physician [facility] Work Phone: 10-07-2022 13:16-0500 Body mass index (BMI) [Ratio] 25.9 kg/m2 No Primary Care Physician [facility] Work Phone: 10-07-2022 13:16-0500 Body weight 70.6 kg No Primary Care Physician [facility] Work Phone: 10-01-2022 15:41-0500 Body mass index (BMI) [Ratio] 25.9 kg/m2 No Primary Care Physician [facility] Work Phone: 10-01-2022 15:41-0500 Body temperature 97.2 [degF] No Primary Care Physician [facility] Work Phone: 10-01-2022 15:41-0500 Body weight 71.66 kg No Primary Care Physician [facility] Work Phone: 10-01-2022 15:41-0500 Diastolic blood pressure 77 mm[Hg] No Primary Care Physician [facility] Work Phone: 10-01-2022 15:41-0500 Heart rate 81 /min No Primary Care Physician [facility] Work Phone: 10-01-2022 15:41-0500 Respiratory rate 17 /min No Primary Care Physician [facility] Work Phone: 10-01-2022 15:41-0500 SaO2% (BldA) [Mass fraction] 100 % No Primary Care Physician [facility] Work Phone: 10-01-2022 15:41-0500 Systolic blood pressure 118 mm[Hg] No Primary Care Physician [facility] Work Phone: 09-25-2022 01:11-0500 Respiratory rate 18 /min [facility] Work Phone: 09-24-2022 18:43-0500 Body height 165.1 cm [facility] Work Phone: 09-24-2022 18:43-0500 Body mass index (BMI) [Ratio] 25.9 kg/m2 [facility] Work Phone: 09-24-2022 18:43-0500 Body temperature 97.1 [degF] [facility] Work Phone: 09-24-2022 18:43-0500 Body weight 70.76 kg [facility] Work Phone: 09-24-2022 18:43-0500 Diastolic blood pressure 67 mm[Hg] [facility] Work Phone: 09-24-2022 18:43-0500 Heart rate 94 /min [facility] Work Phone: 09-24-2022 18:43-0500 SaO2% (BldA) [Mass fraction] 100 % [facility] Work Phone: 09-24-2022 18:43-0500 Systolic blood pressure 115 mm[Hg] [facility] Work Phone: 08-20-2022 09:02-0500 Body temperature 97.9 [degF] [facility] Work Phone: 08-20-2022 09:02-0500 Diastolic blood pressure 64 mm[Hg] [facility] Work Phone: 08-20-2022 09:02-0500 Heart rate 72 /min [facility] Work Phone: 08-20-2022 09:02-0500 Respiratory rate 16 /min [facility] Work Phone: 08-20-2022 09:02-0500 SaO2% (BldA) [Mass fraction] 100 % [facility] Work Phone: 08-20-2022 09:02-0500 Systolic blood pressure 104 mm[Hg] [facility] Work Phone: 08-20-2022 06:56-0500 Body height 166.37 cm [facility] Work Phone: 08-20-2022 06:56-0500 Body mass index (BMI) [Ratio] 25.6 kg/m2 [facility] Work Phone: 08-20-2022 06:56-0500 Body weight 71 kg [facility] Work Phone: 08-13-2022 15:09-0500 Body height 166.4 cm Elizabeth Lundy MD Work Phone: [facility] 08-13-2022 15:09-0500 Body weight 70.94 kg Elizabeth Lundy MD Work Phone: [facility] 08-13-2022 15:09-0500 Diastolic blood pressure 70 mm[Hg] Elizabeth Lundy MD Work Phone: [facility] 08-13-2022 15:09-0500 Heart rate 73 /min Elizabeth Lundy MD Work Phone: [facility] 08-13-2022 15:09-0500 SaO2% (BldA) [Mass fraction] 99 % Elizabeth Lundy MD Work Phone: [facility] 08-13-2022 15:09-0500 Systolic blood pressure 92 mm[Hg] Elizabeth Lundy MD Work Phone: [facility] 07-16-2022 15:15-0400 Body weight 70.76 kg Elizabeth Lundy MD Work Phone: [facility] 07-16-2022 15:15-0400 Diastolic blood pressure 66 mm[Hg] Elizabeth Lundy MD Work Phone: [facility] 07-16-2022 15:15-0400 Systolic blood pressure 104 mm[Hg] Elizabeth Lundy MD Work Phone: [facility] 07-07-2022 10:37-0400 Body height 165.1 cm Lashawn Plotts STRAPPING MACHINE TENDER.CNM Work Phone: [facility] 07-07-2022 10:37-0400 Body weight 70.85 kg Lashawn Plotts STRAPPING MACHINE TENDER.CNM Work Phone: [facility] 07-07-2022 10:37-0400 Diastolic blood pressure 64 mm[Hg] Lashawn Plotts STRAPPING MACHINE TENDER.CNM Work Phone: [facility] 07-07-2022 10:37-0400 Systolic blood pressure 98 mm[Hg] Lashawn Plotts STRAPPING MACHINE TENDER.CNM Work Phone: [facility] Encounters Encounter Date Encounter Type Care Provider Facility Start: 07-17-2025 End: 07-17-2025 ambulatory [facility] Facility:[facility] Start: 05-10-2025 End: 05-10-2025 ambulatory SELF Facility:[facility] Start: 05-09-2025 End: 05-09-2025 Emergency department patient visit No Primary Care Physician -Emergency Department Work Phone: Start: 10-07-2022 Non-patient / Non-visit No Analia danna Care Physician [facility] Start: 10-07-2022 End: 10-07-2022 Admission to same day surgery center No Primary Care Physician [facility] Start: 10-07-2022 End: 10-07-2022 ambulatory No Primary Care Physician [facility] Work Phone: Start: 10-01-2022 End: 10-01-2022 ambulatory No Primary Care Physician [facility] Work Phone: Start: 10-01-2022 End: 10-01-2022 Patient encounter procedure No Primary Care Physician [facility] Start: 09-24-2022 End: 09-25-2022 Emergency department patient visit [facility] Start: 08-20-2022 End: 08-20-2022 ambulatory Elizabeth Lundy MD Work Phone: [facility] Work Phone: Start: 08-20-2022 Patient encounter procedure Elizabeth Lundy MD Work Phone: [facility] Start: 08-20-2022 End: 08-20-2022 Admission to same day surgery center [facility] Start: 08-13-2022 End: 08-13-2022 Patient encounter procedure Elizabeth Lundy MD Work Phone: OB/Gynecology Comment on above: Sterilization consul t (Primary Dx); Preoperative examination Start: 08-13-2022 End: 08-13-2022 Preprocedural examination done Elizabeth Lundy MD Work Phone: OB/Gynecology Start: 07-20-2022 Telephone encounter Elizabeth Lundy MD Work Phone: OB/Gynecology Comment on above: Schedule Surgery Start: 07-16-2022 End: 07-16-2022 Patient encounter procedure Elizabeth Lundy MD Work Phone: OB/Gynecology Comment on above: Sterilization consul t (Primary Dx) Start: 07-07-2022 End: 07-07-2022 Patient encounter procedure Lashawn Bazan STRAPPING MACHINE TENDER.CNM Work Phone: OB/Gynecology Comment on above: Encounter for gyneco logical examination (general) (routine) without abnormal findings (Primary Dx) Start: 07-07-2022 End: 07-07-2022 Patient encounter status Lashawn Bazan STRAPPING MACHINE TENDER.CNM Work Phone: OB/Gynecology Start: 09-22-2020 E-mail encounter fro justa Jose MD Work Phone: [facility] Start: 09-22-2020 Patient encounter procedure Radha Darius Jose MD Work Phone: OB/Gynecology Comment on above: RE: Appointment [facility] ellation Request Start: 12-20-2019 Patient requested procedure Lashawn Bazan STRAPPING MACHINE TENDER.CNM Work Phone: [facility] Work Phone: Procedures Date Procedure Procedure Detail Performing Clinician Start: 05-09-2025 Computed tomography of abdomen and pelvis with intravenous contrast No Primary Care Physician Start: 05-09-2025 Estimated creatinine clearance No Primary Care Physician Start: 10-07-2022 Cholangiogram No Primary Care Physician Start: 10-07-2022 Fluoroscopic guidance No Primary Care Physician Start: 10-07-2022 Total cholecystectomy and exploration of common bile duct No Primary Care Physician Start: 09-24-2022 US scan of gallbladder Start: 09-24-2022 CT of chest and abdomen Start: 09-24-2022 Plain chest X-ray Start: 08-20-2022 Laparoscopic salpingectomy History of cholecystectomy S/P laparoscopic cholecystectomy No Primary Care Physician Plan of Treatment Date Care Activity Detail Author Start: 06-04-2030 Urine microalbumin profile DTAP,TDAP,TD (2 - Td or Tdap) [facility] Start: 05-09-2025 [facility] Start: 12-25-2022 PAP TESTING PAP TESTING [facility] Start: 10-07-2022 Patient discharge [facility] Work Phone: Start: 08-20-2022 Anesthesia intraperitoneal lower abd w/laps nos ANESTH SURG LOWER ABDOMEN [facility] Work Phone: Start: 08-20-2022 Laparoscopy w/rmvl adnexal structures LAPAROSCOPY REMOVE ADNEXA [facility] Work Phone: Start: 08-20-2022 Patient discharge [facility] Work Phone: Start: 08-20-2022 Procedure discontinued [facility] Work Phone: Start: 08-20-2022 End: 08-20-2022 [facility] Work Phone: Start: 08-20-2022 Ambulation without limitation [facility] Work Phone: Start: 08-20-2022 Medical regimen orders management [facility] Work Phone: Start: 08-20-2022 Medication education [facility] Work Phone: Start: 08-20-2022 Taking patient vital signs [facility] Work Phone: Start: 08-20-2022 Vital signs measurements [facility] Work Phone: Start: 06-03-2022 Influenza vaccination INFLUENZA (#1) [facility] Start: 10-03-2021 DEPRESSION ASSESSMENT DEPRESSION ASSESSMENT [facility] Start: 05-02-1994 COVID-19 VACCINE (#1) COVID-19 VACCINE (#1) [facility] Start: 1993 HEPATITIS B (1 of 3 - 3-dose series) HEPATITIS B (1 of 3 - 3-dose series) [facility] Bilirubin measuremen t, urine [facility] Hemoglobin [Presence ] in Urine [facility] Measurement of keton es in urine using dipstick [facility] Microscopic urinalysis [facility] Organism count, micr oscopic method [facility] Patient Education [facility] Work Phone: Patient referral [facility] Work Phone: pH of Urine [facility] Specific gravity of Urine [facility] Urine dipstick for glucose [facility] Urine dipstick for leukocyte esterase [facility] Urine dipstick for nitrite [facility] Urine dipstick for protein [facility] Urine examination [facility] Urine microscopy: epithelial cells [facility] Urine microscopy: red cells [facility] Urobilinogen [Presen ce] in Urine [facility] White blood cell count [facility] Immunizations Immunization Date Immunization Notes Care Provider Diego brunner 07-02-2020 influenza, injectabl e, quadrivalent, contains preservative Lashawn Bazan STRAPPING MACHINE TENDER.CNM Work Phone: [facility] Work Phone: 06-04-2020 tetanus toxoid, redu danuta diphtheria toxoid, and acellular pertussis vaccine, adsorbed Lashawn Bazan STRAPPING MACHINE TENDER.CN Work Phone: [facility] 01-27-2018 measles, mumps and rubella virus vaccine [facility] 12-21-2017 tetanus toxoid, redu danuta diphtheria toxoid, and acellular pertussis vaccine, adsorbed [facility] 08-16-2017 Influenza virus vaccine [facility] Payers Date Payer Category Payer Self-pay [id number] c 2020 Medicaid [id number] Medicaid [id number] Unknown [id number] 8 Unknown [facility] [id number] c Unknown [facility] [id number] 6 Unknown [facility] [id number] 9 Unknown [id number] Social History Date Type Detail Facility Start: 12-18-2017 End: 07-07-2022 Tobacco smoking status NHIS Never smoked tobacco [facility] Start: 12-18-2017 End: 07-07-2022 Tobacco use and exposure Smokeless tobacco non-user [facility] Start: 07-07-2022 End: 08-20-2022 Alcohol intake Current drinker of alcohol (finding) [facility] Start: 07-07-2022 History SDOH Alcohol Comment Occasional [facility] Start: 12-26-2019 History SDOH Financial 5 [facility] Start: 12-26-2019 History SDOH Food Worry 1 [facility] Start: 12-26-2019 History SDOH Transpo rt Med 2 [facility] Start: 12-20-2019 Education 15 [facility] Start: 1995 Sex Assigned At Not on file C [facility] Start: 06-27-2022 End: 07-16-2022 Exposure to SARS-CoV-2 (event) Not sure [facility] Start: 08-18-2022 End: 10-05-2022 Tobacco smoking status NHIS Unknown if ever smoked [facility] Work Phone: Start: 08-05-2020 None [facility] Start: 1995 Sex Assigned At Female [facility] Start: 08-13-2020 Alcohol intake Current non-dr environmental assistant of alcohol (finding) [facility] Start: 05-09-2025 Tobacco smoking stat us GAIS Ex-smoker (finding) [facility] Medical Equipment Procedure Code Equipment Code Equipment Original Text Equipment Identifier Dates Total cholecystectomy with exploration of common bile duct Ligation clip, synthetic polymer, non-bioabsorbable [id number] FDA Start: 10-07-2022 Goals Date Patient Goal Desired Activity /State Mental Status Date Assessment Result Facility 10-07-2022 Cognitive function Level Of Cons ciousness Awake;Appropriate [facility] Work Phone: 10-07-2022 Cognitive function Voice/Name [facility] Work Phone: 08-20-2022 Cognitive function Voice/Name [facility] Work Phone: Clinical Notes 06-11-2020 to 07-17-2025 Note Date & Type Note Facility 07-17-2025 Note HNO ID: [id number] Author: SUSANA THOMASON APRN.HARDWARE DESIGNER Service: ? Author Type: Nurse Practitioner Type: Progress Notes Filed: 07/17/2025 19:28 Note Text: [facility] Kartik Nguyễn is a 29 year old female. Patient presents with: burning with urination: Burning x 2 days HPI Nontoxic-appearing 29-year-old female presents urgent care chief complaint possible UTI. Duration of symptoms 2 days. Associated symptoms dysuria frequency dyspareunia flank pain. History of UTIs this feels similar however her back pain is little more pronounced than normal. History of ovarian cyst. Denies any fevers nausea or vomiting. No vaginal discharge itching or burning. No concerns for STDs. Denies chance of . Currently on menstrual cycle. Is not breast-feeding. Past medical history prescription medications allergies reviewed. No abdominal surgeries. No urological abnormalities. Review of Systems Constitutional: Negative for chills, fatigue and fever. Gastrointestinal: Positive for abdominal pain. Negative for abdominal distention, nausea, rectal pain and vomiting. Genitourinary: Positive for dyspareunia, dysuria and frequency. Negative for decreased urine volume, difficulty urinating, flank pain, genital sores, hematuria, menstrual problem, pelvic pain, urgency, vaginal bleeding, vaginal discharge and vaginal pain. Objective BP 118/82 Pulse 79 Temp 37.2 ?C (99 ?F) (Tympanic) Resp 18 Wt 72 kg (158 lb 11.7 oz) LMP 05/01/2025 (Approximate) SpO2 97% BMI 26.01 kg/m? Physical Exam Constitutional: Appearance: Normal appearance. HENT: Mouth/Throat: Mouth: Mucous membranes are moist. Cardiovascular: Rate and Rhythm: Normal rate. Pulmonary: Effort: Pulmonary effort is normal. Breath sounds: Normal breath sounds. Abdominal: Tenderness: There is abdominal tenderness in the suprapubic area. There is no right CVA tenderness, left CVA tenderness, guarding or rebound. Comments: Mild tenderness Neurological: Mental Status: She is alert. {ASSESSMENT/PLAN: 1. Burning with urination - ICD9: 788.1, ICD10: R30.0 - UA DIP, URINE (POC) - BACTERIAL CULTURE, URINE Urine positive for leukocytes and blood. Treat for acute cystitis. Differentials discussed with patient. Placed on Bactrim. Treat accordingly with culture. Patient was educated on supportive therapies. Patient will follow up with primary care provider as needed. Patient was instructed to immediately proceed to emergency room for any new, worsening, or symptoms lasting longer than anticipated. The patient's clinical presentation is otherwise unremarkable at this time. Based on exam and clinical finding, the patient is stable for discharge. Plan of care was discussed with patient. Patient verbalizes understanding and agrees to plan of care. This note was generated using [employer] software. It may contain errors in wording, punctuation, or spelling. Susana Thomason APRN.HARDWARE DESIGNER History and Record Review Clinical information obtained from an independent historian. History obtained from or confirmed by: parent. External record(s) reviewed: prior outpatient record. Disposition The patient was discharged. OTC Medications were advised: Procedures [facility] 05-10-2025 Note HNO ID: [id number] Author: TAYLOR ALFARO APRN.HARDWARE DESIGNER Service: ? Author Type: Nurse Practitioner Type: Progress Notes Filed: 05/10/2025 13:12 Note Text: Hand Molder offered: Patient declines. Viki Nguyễn is a 29 year old female who presents for ED follow up. HPI: Viki was seen at [facility] for right sided pelvic/abdominal pain yesterday. She reports that she has been having a constant achy pain for roughly 3 days, rating it a 3/10. Feels pain with walking. Had bilateral salpingectomy in 2021. Had [address] in ER: FINDINGS: Lung bases: Clear. Liver: Unremarkable. Gallbladder: Surgically absent. No biliary ductal dilatation. Spleen: Normal size and morphology. Pancreas: Unremarkable. Adrenals: Unremarkable. Kidneys: Normal, symmetric enhancement. No urolithiasis or hydroureteronephrosis. Bladder: Unremarkable, no bladder calculus is seen. Reproductive Organs: Simple appearing right ovarian cyst measuring 2.4 cm. Otherwise unremarkable uterus and adnexae. No significant pelvic free fluid is seen. Bowel: Unremarkable, no obstruction or active inflammatory process. Normal appendix. Lymph nodes: No enlarged abdominopelvic lymph nodes. Vasculature: Normal course and caliber of the abdominal aorta and IVC. Peritoneum / Retroperitoneum: No ascites or free air. Bones: No significant abnormality. Osteitis condensans ilii. CT/Abdomen/Pelvis W IV Cont ONLY IMPRESSION: No acute or active inflammatory intra-abdominal pathology. Normal appendix. Small 2.4 cm right ovarian cyst/dominant follicle. No follow-up indicated. OB History Gravida3 Para3 Term3 Preterm0 AB0 Living3 SAB0 IAB0 Ectopic0 Multiple0 Live Births3 Campaign Specialist History LMP: 05/01/2025 (Approximate), Having periods Age at Menarche: Age at First : Age at Menopause: Campaign Specialist History Comments: Sexual Activity: Yes; Male; bilateral salpingectomy Contraception: Tubal Ligation PAST MEDICAL HISTORY Diagnosis Date Anxiety anxiety Gestational diabetes mellitus (GDM) affecting 06/11/2020 PAST SURGICAL HISTORY Procedure Laterality Date SECTION HX LAPAROSCOPY W/RMVL ADNEXAL STRUCTURES Bilateral 08/20/2022 bilateral salpingectomy for sterilization FAMILY HISTORY Problem Relation Age of Onset Breast Cancer Mother 38 other (anxiety) Mother other (anxiety) Father No Known Problems Sister No Known Problems Maternal Grandmother No Known Problems Maternal Grandfather Hypertension Paternal Grandmother Stroke Paternal Grandmother Hypertension Paternal Grandfather No Known Problems Daughter Social History Tobacco Use Smoking status: Never Smokeless tobacco: Never Vaping Use Vaping status: Never Used Substance Use Topics Alcohol use: Yes Comment: Occasional Drug use: Not Currently Current Outpatient Medications Medication Sig Oiicxsxf-On-Jox-Fe-FA ( VITAMIN) tab Take 1 tablet by mouth. (Patient not taking: No sig reported) No current facility-administered medications for this visit. Allergies As of Date: 05/10/2025 (No Known Allergies) Fully Assessed 05/10/2025 REVIEW OF SYSTEMS Expanded ROS: SIEBEL ARCHITECT: + Pelvic pain Allergies and current medication updated:Yes SENSITIVE EXAM: The sensitive examination was discussed with the Patient or Patient's Authorized Maitre D'. As applicable, any other physician, advance practice provider, medical student, or other health professional student that will be observing or involved in the sensitive examination for educational or training purposes was discussed with the Patient or Authorized Maitre D'. The Patient or Authorized Maitre D' has agreed to proceed with the sensitive examination. (Sensitive examination includes inspection and/or palpation of the breasts, pelvis, prostate and anorectal regions). EXAM: BP 110/62 Wt 158 lb (71.7kg) LMP 05/01/2025 GENERAL: pleasant, female in no apparent distress HEENT: Normocephalic, atraumatic, mucus membranes moist, and no lesions CHEST: Normal inspiratory effort ABDOMEN: soft, non-tender, and no masses PELVIC: external genitalia normal, normal Bartholin's glands, urethra, Krum's glands, + very mild excoriation noted to right of introitus, no cervical lesions, good vaginal support, physiologic discharge present, normal appearing perineal body and perianal region BIMANUAL: deferred NEURO: alert and oriented x3,exam grossly non-focal EXTREMITIES: normal ASSESSMENT AND PLAN: Pelvic pain in female - ICD9: 625.9, ICD10: R10.2 (primary diagnosis) - Discussed small ovarian simple cyst to right ovary, likely dominant follicle - Discussed that I suspect her pain is ovulatory related as LMP was May 01 - Rotate Tylenol and Ibuprofen - Will likely resolve within 1 week - To go to ER with severe pain, fever, chills, nausea/vomiting - TO notify if pain does not subside and pelvic ultrasound will be ordered Vulvar irritation - IC (more content not included)... [facility] 05-09-2025 Discharge summary [facility] 05-09-2025 Radiology Diagnostic study note [facility] [address], [place] [id number] Abdomen/Pelvis W IV Cont ONLY MR#: [id number] Acct: [id number] Name: VIKI GARCIA Rep #: [id number] : 1995 From: Sergey Montano MD PCP: Care Physician,No Primary Status: REG ER Study:Abdomen/Pelvis W IV Cont ONLY Date of E xam: 05/09/25 Exam# [id number] Ordering Dr: Elmer Noel DO PROCEDURE: CT ABDOMEN/PELVIS W IV CONT ONLY 05/09/2025 REASON FOR EXAM: RIGHT LOWER QUADRANT ABDOMINAL PAIN. TECHNIQUE: CT ABDOMEN/PELVIS W IV CONT ONLY. Coronal and Sagittal reconstruction series were provided. CONTRAST: Isovue 370 VOLUME: 99 mL One or more dose reduction techniques were used (e.g., Automated exposure control, adjustment of the mA and/or kV according to patient size, use of iterative reconstruction technique. RADIATION DOSE SUMMARY: DLP: 459.75 mGycm COMPARISON: Abdominal CT and ultrasound 09/24/2022. FINDINGS: Lung bases: Clear. Liver: Unremarkable. Gallbladder: Surgically absent. No biliary ductal dilatation. Spleen: Normal size and morphology. Pancreas: Unremarkable. Adrenals: Unremarkable. Kidneys: Normal, symmetric enhancement. No urolithiasis or hydroureteronephrosis. Bladder: Unremarkable, no bladder calculus is seen. Reproductive Organs: Simple appearing right ovarian cyst measuring 2.4 cm. Otherwise unremarkable uterus and adnexae. No significant pelvic free fluid is seen. Bowel: Unremarkable, no obstruction or active inflammatory process. Normal appendix. Lymph nodes: No enlarged abdominopelvic lymph nodes. Vasculature: Normal course and caliber of the abdominal aorta and IVC. Peritoneum / Retroperitoneum: No ascites or free air. Bones: No significant abnormality. Osteitis condensans ilii. CT/Abdomen/Pelvis W IV Cont ONLY IMPRESSION: No acute or active inflammatory intra-abdominal pathology. Normal appendix. Small 2.4 cm right ovarian cyst/dominant follicle. No follow-up indicated. Reading Location: [id number] CC: Dr. Elmer Noel, DO; No Primary Care Physician ~ [place]: Signed [facility] 05-09-2025 Discharge summary Note Date/Time May 09, 2025 5:01pm [facility] Medical Records Department [address] [place] [id number] Emergency Department Summary 05/09/25 MR#: [id number] Acct: [id number] Name: VIKI GARCIA Rep #:[id number] : 1995 29 From: Elmer Guevara PCP: Care Physician,No Primary Status :REG ER Location: ED HPI HPI - GI History of Present Illness Chief Complaint: Abd Pain Informant: patient Abdominal Pain/Flank Pain Onset: Yesterday Context: Gradual Onset Timing: Continuous Quality: Aching Location: RLQ Worsened by: Movement and - (Walking) Relieved by: Nothing Nausea/Vomiting/Emesis GI Symptom: Positive for Nausea; Negative for Vomiting Diarrhea/Melena/Hematochezia GI Symptom: Negative for Diarrhea, Melena or Hematochezia Associated Symptoms Associated Symptoms: Negative for Dysuria, Frequency or Hematuria LMP: Approximately 1 week ago Narrative Narrative: Patient presents with abdominal pain that began yesterday. Patient states it came on gradually. Patient states it has been constant. Patient describes it as aching. Patient states she has had similar episodes in the past that have resolved on their own. The patient states her pain is mainly over the right lower abdomen. Patient states it is worse with movement and with walking. Patient admits to some nausea but denies any vomiting. Patient admits to decreased appetite. Patient states her last meal was around 6 PM last evening. Patient denies any diarrhea, melena, hematochezia. Patient dates her last menstrual period was approximately 1 week ago. PFSH PFSH Medical History Wears glasses Former smoker Home Medications ?Medication ?Instructions ?Recorded ?Last Taken ?Type NK 05/09/25 Unknown History Allergy/AdvReac Type Severity Reaction Status Date / Time No Known Allergies Allergy Verified 05/09/25 13:45 Surgical History S/P laparoscopic cholecystectomy Hx of bilateral salpingectomy Previous section Social History Smoking Status: Former smoker ROS ROS ED Constitutional Constitutional ED: Denies chills or fever(s) Eyes Eyes: Denies blurry vision or change in vision ENT ENT ED: Denies rhinorrhea or sore throat Cardiovascular Cardiovascular: Denies chest pain or palpitations Respiratory/Chest Respiratory/Chest: Denies cough or dyspnea Gastrointestinal Gastrointestinal: Reports abdominal pain and nausea; Denies diarrhea, melena or vomiting Genitourinary Genitourinary ED: Denies dysuria or hematuria Musculoskeletal Musculoskeletal: Reports back pain and neck pain Integumentary Denies abscess or rash Neurologic Neurologic: Reports headache(s); Denies weakness Allergic/Immunologic Allergic/Immunologic ED: Denies mouth swelling or urticaria EXAM Physical Exam Const Vital Signs: 05/09/25 13:44 Temperature 98.4 F Temperature Source Oral Pulse Rate 87 Respiratory Rate 15 Blood Pressure 128/80 H Blood Pressure Mean 96 Pulse Ox 100 Oxygen Delivery Method Room Air Positive well nourished and well developed General Appearance ED: well developed and NAD HEENT Reports moist mucous membranes Neck supple and no JVD Resp normal respiratory effort and clear to auscultation bilaterally Cardio regular rate and regular rhythm GI non-distended Palpation: soft and tender RLQ; Negative for guarding or rebound tenderness present Extremity full ROM General Extremety ED: Negative for edema or tenderness General Extremity: Negative for edema Neuro CN's II-XII intact bilaterally, moves all extremities and no sensory deficits noted Sensorium / Orientation: alert Motor Exam: strength 5/5 throughout Psych mental status grossly normal MDM MDM MDM Narrative Medical decision making narrative: Differential diagnosis includes appendicitis, ureteral calculus, ovarian cyst, ectopic , viral illness, and electrolyte abnormality. CBC will be obtained to assess for leukocytosis and anemia. Basic metabolic profile will beobtained to assess for electrolyte abnormality and renal function. Serum HCG will be obtained to assess for . CT scan of the abdomen and pelvis will be obtained to assess for appendicitis and ureteral calculus. Lab Data Attestation: I reviewed the patient's lab results. Lab results narrative: CBC was reviewed and was within normal limits. Basic metabolic profile was reviewed and was within normal limits. Serum hCG was reviewed and was negative. Labs: Laboratory Results - last 24 hr 05/09/25 13:55 WBC 10.5 RBC 4.66 Hgb 12.7 Hct 39.0 MCV 83.7 MCH 27.3 MCHC 32.6 RDW Std Deviation 41.4 RDW Coeff of Kaci 13.5 Plt Count 359 MPV 10.8 Immature Gran % (Auto) 0.500 Neut % (Auto) 70.3 H Lymph % (Auto) 21.3 [place] % (Auto) 6.4 Eos % (Auto) 1.0 Baso % (Auto) 0.5 Absolute Neuts (auto) 7.4 Absolute Lymphs (auto) 2.24 Nucleated RBC % 0 Sodium 138 Potassium 3.6 Chloride 100 Carbon Dioxide 24.0 Anion Gap 14 BUN 10 Creatinine 0.74 Estim Creat Clear Calc 108.69 Est GFR (MDRD) Non-Af 112 BUN/Creatinine Ratio 13.3 Glucose 84 Calcium 9.3 Serum , Qual NEGATIVE Radiography Diagnostic Testing: Clinical Impression(s) from Imaging Studies Abdomen/Pelvis CT 05/09/25 14:53 IMPRESSION: No acute or active inflammatory intra-abdominal pathology. Normal appendix. Small 2.4 cm right ovarian cyst/dominant follicle. No follow-up indicated. Reading Location: [facility] CT scan of the abdomen and pelvis was obtained. There is no acute abnormality noted. There is a small 2.4 cm right ovarian cyst or follicle. The appendix was visualized and was normal. There is no free air or free fluid. This was interpreted by the radiologist and was also independently reviewed by myself. Treatment and Re-Evaluation :: Patient was given IV fluids and Zofran. Patient was feeling better on reevaluation. Patient was advised of her findings. Patient was instructed to take Tylenol or ibuprofen as needed for pain. Patient was instructed to follow-up with her primary care physician in 5 to 7 days. Patient understood and was agreeable with the plan. All questions were answered. Discharge Plan Triage Chief Complaint: Abd Pain ED Provider: Elmer Noel Dx/Rx/DC Orders Clinical Impression: Cyst of right ovary, Abdominal pain, right lower quadrant Instructions: ED Ovarian Cyst Prescriptions: No Action NK Primary Care Provider: Care Physician,No Primary Referrals: Elizabeth Lundy MD [Med Staff - Active Staff] - 5-7 Days Care Physician,No Primary [Primary Care Provider] - Print Language: Somali Disposition Disposition: Home, Self Care What to do if you have Problems For any increased pain, shortness of breath, bleeding, nausea or vomiting, chestpain, or any unexpected problems, contact your Primary Care Provider. Call [facility] ([phone]) or report to the closest Emergency Room. Call 911 if necessary. 05/09/25 1701 <Electronically signed by Elmer Noel DO> Cosigner Signature (if applicable): CC: No Primary Care Physician ~ Signed [facility] Work Phone: [phone]) 932-981211-18-2022 History of Present illness Narrative* Elizabeth Lundy MD - 08/20/2022 2:49 PM EST Patient underwent l/s bilateral salpingectomy at [facility] today for sterilization without complication. Elizabeth Lundy MD documented [facility] History and physical note * Elizabeth Lundy MD - 08/13/2022 3:18 PM EST Pre-Op History and Physical HPI: The patient is a 26 year old female presenting for pre-operative visit. She is scheduled for laparoscopic bilateral salpingectomy, for sterilization on 1117. Procedure discussed along with risks, benefits and complications. Other alternatives discussed for management. Consent form signed? Yes. PAST MEDICAL HISTORY Diagnosis Date Anxiety anxiety Gestational diabetes mellitus (GDM) affecting 06/11/2020 PAST SURGICAL HISTORY Procedure Laterality Date SECTION HX Current Outpatient Medications Medication Sig Dispense Refill Qfgeqvjk-Oj-Nbp-Fe-FA ( VITAMIN) tab Take 1 tablet by mouth. (Patient not taking: No sig reported) No current facility-administered medications for this visit. ALLERGIES: Patient has no known allergies. PERSONAL HISTORY: Social History Tobacco Use Smoking status: Never Smokeless tobacco: Never Vaping Use Vaping Use: Never used Substance Use Topics Alcohol use: Yes Comment: Occasional Drug use: Not Currently FAMILY HISTORY: FAMILY HISTORY Problem Relation Age of Onset Breast Cancer Mother 38 other (anxiety) Mother other (anxiety) Father No Known Problems Sister No Known Problems Maternal Grandmother No Known Problems Maternal Grandfather Hypertension Paternal Grandmother Stroke Paternal Grandmother Hypertension Paternal Grandfather No Known Problems Daughter REVIEW OF SYMPTOMS: GENERAL: denies fevers or chills ENDOCRINOLOGY: has not been on steroids Cardiology : denies palpitations or chest pain Respiratory: denies SOB or cough Hematology: denies history of prolonged bleeding or easy bruising or VTE Allergy: Denies history of personal or family history of allergy to anesthesia PHYSICAL EXAMINATION: VITALS: Blood pressure 92/70, pulse 73, height 5' 5.5 (1.664 m), weight 156 lb 6.4 oz (70.9 kg), last menstrual period 07/27/2022, SpO2 99 %. GENERAL: The patient is well nourished, well hydrated in no acute distress. , The patient is oriented to time, place, and person. NECK: Supple. No lynphadenopathy, normal thyroid, no thyromegaly. LUNGS: Clear to auscultation bilaterally. no wheezes, rhonchi or rales HEART: Regular rate and rhythm, Normal heart sounds, and No murmurs or gallops IMPRESSION: sterilization request PLAN:The risks/benefits/alternatives and personal involved for the planned laparoscopic bilateral salpingectomy were reviewed with the patient. Her questions were answered to her satisfaction and shedesires to proceed. Consent was signed. I reviewed with her postop instructions and expectations. Risks, benefits and alternatives to sterilization have been discussed with the patient. She declines reversible options including LARC. She understands sterilization is permanent, irreversible, risksof failure, regret and ectopic. In addition she understands there are surgical risks as well. Her questions were answered to her satisfaction and consent was signed I have reviewed and updated past medical and surgical history, medications and allergies Elizabeth Lundy M.D. documented in this encounterK[facility]10-[facility] Miscellaneous Notes* Telephone Encounter - Parisa Arguelles RN - 07/21/2022 2:12 PM EDT Patient is ok with 08/20 surgery date with RR. Pre Op scheduled for 08/13. Parisa Arguelles RN * Telephone Encounter - Coreen Cha LPN - 07/21/2022 1:16 PM EDT Left message to call office * Telephone Encounter - Coreen Cha LPN - 07/20/2022 10:37 AM EDT Left message to call office. First available Tuesday for surgery at [facility] with Dr. Lundy is 08/20/2022. Patient signed title 19 on 07/16/2022. Patient will need a pre-operative appointment documented in this encounterK[facility]10-14-2022 History of Present illness Narrative* Elizabeth Lundy MD - 07/16/2022 3:13 PM EDT Viki Nguyễn is a 26 year old female who presents for problem visit sterilization requst . Has 3 children. Does not want future pregnacy OB History T3 L3 SAB0 IAB0 Ectopic0 Multiple0 Live Births3 Campaign Specialist History LMP: 07/02/2022 (Exact Date), Having periods Age at Menarche: Age at First : Age at Menopause: Campaign Specialist History Comments: Sexual Activity: Yes; Male Contraception: None PAST MEDICAL HISTORY Diagnosis Date Anxiety anxiety Gestational diabetes mellitus (GDM) affecting 06/11/2020 PAST SURGICAL HISTORY Procedure Laterality Date SECTION HX FAMILY HISTORY Problem Relation Age of Onset Breast Cancer Mother 38 other (anxiety) Mother other (anxiety) Father No Known Problems Sister No Known Problems Maternal Grandmother No Known Problems Maternal Grandfather Hypertension Paternal Grandmother Stroke Paternal Grandmother Hypertension Paternal Grandfather No Known Problems Daughter Social History Tobacco Use Smoking status: Never Smokeless tobacco: Never Vaping Use Vaping Use: Never used Substance Use Topics Alcohol use: Yes Comment: Occasional Drug use: Not Currently Current Outpatient Medications Medication Sig Prsudozc-Lx-Nlq-Fe-FA ( VITAMIN) tab Take 1 tablet by mouth. (Patient not taking: Reported on 08/26/2021 ) No current facility-administered medications for this visit. Allergies As of Date: 07/16/2022 (No Known Allergies) Fully Assessed 07/07/2022 Allergies and current medication updated:Yes EXAM: LMP 07/02/2022 GENERAL: pleasant, female in no apparent distress ASSESSMENT AND PLAN: Sterilization request. Risks, benefits and alternatives to sterilization have been discussed with the patient. She declines reversible options including LARC. She understands sterilization is permanent, irreversible, risks of failure, regret and ectopic. In addition she understands there are surgical risks as well. Her questions were answered to her satisfaction and consent was signed. D/w her bilateral salpingectomy if anatomy allows, otherwise Filshie clips. Prefers a Tuesday due to work schedule . Medical Decision Making: Medical Decision Making Level: 1 - N/A Elizabeth Lundy MD documented in this encounterK[facility]10-05-[facility] History of Present illness Narrative* Lashawn Baazn APRN.CNM - 07/07/2022 10:35 AM EDT Viki is a 26 year old who presents for an annual gynecologic exam without complaints. Mother breast cancer age 38- bilateral mastectomy - not genetic Menses: cycles every 30 days and 4-5 days of flow. Contraception: none- desires tubal ligation HPV vaccine: No Last Pap: 12/27/2019 normal HPV: negative History of abnormal pap: No Last mammogram: never Sexually active: Yes Pain with intercourse: No Postcoital bleeding: No Exercise: 3 x week - lifting Diet: regular Seatbelt use: Yes OB History T3 L3 SAB0 IAB0 Ectopic0 Multiple0 Live Births3 Campaign Specialist History LMP: 07/02/2022 (Exact Date), Having periods Age at Menarche: Age at First : Age at Menopause: Campaign Specialist History Comments: Sexual Activity: Yes; Male Contraception: None PAST MEDICAL HISTORY Diagnosis Date Anxiety anxiety Gestational diabetes mellitus (GDM) affecting 06/11/2020 PAST SURGICAL HISTORY Procedure Laterality Date SECTION HX FAMILY HISTORY Problem Relation Age of Onset Breast Cancer Mother 38 other (anxiety) Mother other (anxiety) Father No Known Problems Sister No Known Problems Maternal Grandmother No Known Problems Maternal Grandfather Hypertension Paternal Grandmother Stroke Paternal Grandmother Hypertension Paternal Grandfather No Known Problems Daughter SOCIAL HISTORY Social History Tobacco Use Smoking status: Never Smokeless tobacco: Never Vaping Use Vaping Use: Never used Substance Use Topics Alcohol use: Yes Comment: Occasional Drug use: Not Currently REVIEW OF SYSTEMS Abdomen: No abdominal pain, nausea, vomiting, diarrhea, or constipation. No bloating, early satiety, indigestion, or increased flatulence. Bladder: No dysuria, gross hematuria, urinary frequency, urinary urgency, or incontinence. Breast: No breast lumps, nipple d/c, overlying skin changes, redness or skin retraction. Allergies and current medication updated:Yes EXAM: BP 98/64 Ht 5' 5 (1.65m) Wt 156 lb 3.2 oz (70.9kg) LMP 07/02/2022 BMI 25.99 kg/(m^2). GENERAL: pleasant, female in no apparent distress HEENT: Normocephalic, atraumatic, mucus membranes moist, and no lesions NECK: Supple and full range of motion DERMATOLOGY: Normal and without lesions BREAST: soft, non-tender, symmetric, no dominant mass, normal nipple-areolar complex, no lymphadenopathy, and no nipple discharge CHEST: Normal inspiratory effort ABDOMEN: soft, non-tender, and no masses PELVIC: external genitalia normal, normal Bartholin's glands, urethra, Krum's glands, no vulvar lesions, no cervical lesions, good vaginal support, physiologic discharge present, normal appearing perineal body and perianal region BIMANUAL: uterus normal size, shape and consistency, no adnexal masses, non- tender, and no cervicalmotion tenderness RECTOVAGINAL: deferred. NEURO: alert and oriented x3,exam grossly non-focal EXTREMITIES: normal ASSESSMENT/PLAN: 1) Health maintenance: Pap/HPV up to date. 2) Contraception: none. Contraceptive options reviewed- patient desires tubal ligation 3) STD screening: Declined STD check. 4) Follow up one year for annual and josh with physician to discuss tubal ligation Lashawn Bazan APRN.CNM documented in this encounterK[facility]09-09-2020 History of Past illness Narrative* Problem Noted Date Resolved Date Gestational diabetes mellitus (GDM) affecting pr egnancy 06/11/2020 10/20/2020 Overview: 07/16/20-Growth US at 35w6d. 6lb 7oz, 65th percentile. abdominal growth increased, adequate growth. JENNY normal. Muriel Mata APRN.CNM 06/18/2020 Diet controlled. Will plan on growth US at 36 wks, NST's at 36 wks, and delivery ~39-40 wks unless insulin is started. 06/06/2020 - 3 hr GTT completed and 3/4 elevated. SW Request for sterilization 03/19/20202020 Overview: 03/19/2020 Desire tubal ligation. SW Previous delivery affecting 0 12/20/2019 10/20/2020 Overview: 06/18/2020 Pt desires TOLAC. Discussed r/b of TOLAC vs repeat C/S. Good TOLAC candidate given prior vaginal delivery. 02/07/20 - Risks/benefits/alternatives discussed with patient regarding trial of labor and potential for uterine rupture. Risks include but are not limited to maternal hemorrhage, risk of injury to adjacent organs including potential hysterectomy. risks discussed as well, including potential for permanent neurologic injury or . Overall uterine rupture risk is less than 1% after one section. Is a trial of labor contraindicated for this patient? No If no, calculate rate of success using pre-labor factors: [email or web address] Predicted chance of vaginal after : 88.2% Patient's plan for delivery mode: undecided Danielle Bunn MD 12/20/2019Pt is . Had vaginal delivery with 1st child. Had a C section for breech presentation with her last child. . She desires a repeat C section .TKRN documented as of this encounter (statuses as of 07/07/2022) [facility]09[facility] History of Past illness Narrative* Problem Noted Date Resolved Date Gestational diabetes mellitus (GDM) affecting pr egnancy 06/11/2020 10/20/2020 Overview: 07/16/20-Growth US at 35w6d. 6lb 7oz, 65th percentile. abdominal growth increased, adequate growth. JENNY normal. Muriel Mata APRN.JENNIFER 06/18/2020 Diet controlled. Will plan on growth US at 36 wks, NST's at 36 wks, and delivery ~39-40 wks unless insulin is started. SW 06/06/2020 - 3 hr GTT completed and 12/04 elevated. SW Request for sterilization 03/19/20202020 Overview: 03/19/2020 Desire tubal ligation. SW Previous delivery affecting 0 12/20/2019 10/20/2020 Overview: 06/18/2020 Pt desires TOLAC. Discussed r/b of TOLAC vs repeat C/S. Good TOLAC candidate given prior vaginal delivery. 02/07/20 - Risks/benefits/alternatives discussed with patient regarding trial of labor and potential for uterine rupture. Risks include but are not limited to maternal hemorrhage, risk of injury to adjacent organs including potential hysterectomy. risks discussed as well, including potential for permanent neurologic injury or . Overall uterine rupture risk is less than 1% after one section. Is a trial of labor contraindicated for this patient? No If no, calculate rate of success using pre-labor factors: http://[email or web address]/vagbirth.html Predicted chance of vaginal after : 88.2% Patient's plan for delivery mode: undecided Danielle Bunn MD 12/20/2019Pt is . Had vaginal delivery with 1st child. Had a C section for breech presentation with her last child. . She desires a repeat C section .TKRN Patient request for diagnostic testing 0 07/16/2022 Overview: 12/20/2019 Patient desires nuchal ultrasound. Declines genetic carrier screening testing. TKRN documented as of this encounter (statuses as of 07/16/2022) [facility] History of Past illness Narrative* Problem Noted Date Resolved Date Gestational diabetes mellitus (GDM) affecting pr egnancy 06/11/2020 10/20/2020 Overview: 07/16/20-Growth US at 35w6d. 6lb 7oz, 65th percentile. abdominal growth increased, adequate growth. JENNY normal. Muriel Mata APRN.SOPHIAM 06/18/2020 Diet controlled. Will plan on growth US at 36 wks, NST's at 36 wks, and delivery ~39-40 wks unless insulin is started. 06/06/2020 - 3 hr GTT completed and 3/4 elevated. SW Request for sterilization 03/19/20202020 Overview: 03/19/2020 Desire tubal ligation. SW Previous delivery affecting 0 12/20/2019 10/20/2020 Overview: 06/18/2020 Pt desires TOLAC. Discussed r/b of TOLAC vs repeat C/S. Good TOLAC candidate given prior vaginal delivery. 02/07/20 - Risks/benefits/alternatives discussed with patient regarding trial of labor and potential for uterine rupture. Risks include but are not limited to maternal hemorrhage, risk of injury to adjacent organs including potential hysterectomy. risks discussed as well, including potential for permanent neurologic injury or . Overall uterine rupture risk is less than 1% after one section. Is a trial of labor contraindicated for this patient? No If no, calculate rate of success using pre-labor factors: http://www.[email or web address]/mfmu/vagbirth.html Predicted chance of vaginal after : 88.2% Patient's plan for delivery mode: undecided Danielle Bunn MD 12/20/2019Pt is . Had vaginal delivery with 1st child. Had a C section for breech presentation with her last child. . She desires a repeat C section .TKRN Patient request for diagnostic testing 0 07/16/2022 Overview: 12/20/2019 Patient desires nuchal ultrasound. Declines genetic carrier screening testing. TKRN documented as of this encounter (statuses as of 07/21/2022) [facility] History of Past illness Narrative* Problem Noted Date Resolved Date Gestational diabetes mellitus (GDM) affecting pr egnancy 06/11/2020 10/20/2020 Overview: 07/16/20-Growth US at 35w6d. 6lb 7oz, 65th percentile. abdominal growth increased, adequate growth. JENNY normal. Muriel Mata APRN.JENNIFER 06/18/2020 Diet controlled. Will plan on growth US at 36 wks, NST's at 36 wks, and delivery ~39-40 wks unless insulin is started. 06/06/2020 - 3 hr GTT completed and 3/4 elevated. SW Request for sterilization 03/19/20202020 Overview: 03/19/2020 Desire tubal ligation. SW Previous delivery affecting 0 12/20/2019 10/20/2020 Overview: 06/18/2020 Pt desires TOLAC. Discussed r/b of TOLAC vs repeat C/S. Good TOLAC candidate given prior vaginal delivery. SW 02/07/20 - Risks/benefits/alternatives discussed with patient regarding trial of labor and potential for uterine rupture. Risks include but are not limited to maternal hemorrhage, risk of injury to adjacent organs including potential hysterectomy. risks discussed as well, including potential for permanent neurologic injury or . Overall uterine rupture risk is less than 1% after one section. Is a trial of labor contraindicated for this patient? No If no, calculate rate of success using pre-labor factors: http://www.[email or web address]/vagbirth.html Predicted chance of vaginal after : 88.2% Patient's plan for delivery mode: undecided Danielle Bunn MD 12/20/2019Pt is . Had vaginal delivery with 1st child. Had a C section for breech presentation with her last child. . She desires a repeat C section .TKRN Patient request for diagnostic testing 0 07/16/2022 Overview: 12/20/2019 Patient desires nuchal ultrasound. Declines genetic carrier screening testing. TKRN documented as of this encounter (statuses as of 08/13/2022) [facility] History of Past illness Narrative* Problem Noted Date Resolved Date Gestational diabetes mellitus (GDM) affecting pr egnancy 06/11/2020 10/20/2020 Overview: 07/16/20-Growth US at 35w6d. 6lb 7oz, 65th percentile. abdominal growth increased, adequate growth. JENNY normal. Muriel Mata APRN.JENNIFER 06/18/2020 Diet controlled. Will plan on growth US at 36 wks, NST's at 36 wks, and delivery ~39-40 wks unless insulin is started. 06/06/2020 - 3 hr GTT completed and 3/4 elevated. Request for sterilization 03/19/20202020 Overview: 03/19/2020 Desire tubal ligation. Previous delivery affecting 0 12/20/2019 10/20/2020 Overview: 06/18/2020 Pt desires TOLAC. Discussed r/b of TOLAC vs repeat C/S. Good TOLAC candidate given prior vaginal delivery. 02/07/20 - Risks/benefits/alternatives discussed with patient regarding trial of labor and potential for uterine rupture. Risks include but are not limited to maternal hemorrhage, risk of injury to adjacent organs including potential hysterectomy. risks discussed as well, including potential for permanent neurologic injury or . Overall uterine rupture risk is less than 1% after one section. Is a trial of labor contraindicated for this patient? No If no, calculate rate of success using pre-labor factors: http://www.[email or web address]/mfmu/vagbirth.html Predicted chance of vaginal after : 88.2% Patient's plan for delivery mode: undecided Danielle Bunn MD 12/20/2019Pt is . Had vaginal delivery with 1st child. Had a C section for breech presentation with her last child. . She desires a repeat C section .TKRN Patient request for diagnostic testing 0 07/16/2022 Overview: 12/20/2019 Patient desires nuchal ultrasound. Declines genetic carrier screening testing. TKRN documented as of this encounter (statuses as of 08/20/2022) [facility] Diagnosis Encounter for gynecological examination (general) (routine) without abnormal findings- Primary documented in this encounter [facility] note* Diagnosis Sterilization consult- Primary Other general counseling and advice for contraceptive management documented in this encounter [facility] note* Diagnosis Sterilization consult- Primary Other general counseling and advice for contraceptive management Preoperative examination Preoperative examination, unspecified [facility] Diagnosis Onset Date Resolution Status Sterilization acute [facility] Work Phone: Evaluation note* Diagnosis Onset Date Resolution Status Sterilization resolved [facility] Work Phone: Evaluation noteNo assessment information available [facility] Work Phone: Hospital Discharge instructions Additional Instructions Your ultrasound showed multiple gallstones which would correlate with your presentation and pain. Please eat small more frequent meals that are bland in nature and avoid any greasy or fatty substance as this could cause return of symptoms. Please follow-up with general surgery to discuss need for further testing and or outpatient surgical removal of your gallbladder. If you have any further concerns please return to the ER [facility]: Reason for referral (narrative)No reason for referral information availableWGuernsey [facility] Work Phone: Chief Complaint and Reason for Visit Chief Complaint LAP BILATERAL SALPIN G Reason for Visit Sterilization Chief Complaint LAP BILATERAL SALPIN G abd pain Reason for Visit Sterilization Chief Complaint LAP BILATERAL SALPIN G abd pain GALLBLADDER E ORDER Reason for Visit Sterilization Chief Complaint Admit Date ABD PAIN May 09, 2025 1:4 3pm Advance Directives No Advanced Directives Records Found Advance Directive Response Recorded Date/ Time Living Will No August 18, 022 2:00pm Power of Faith Healer No August 18, 2022 2:00pm Advance Directive Response Recorded Date/ Time Living Will No September 24 022 6:47pm Power of Faith Healer No September 24, 2022 6:47pm Advance Directive Response Recorded Date/ Time Living Will No October 05 12:19pm Power of Faith Healer No October 05 023 12:19pm Advance Directive Response Recorded Date/ Time Do you have a Healthcare Power of Faith Healer? No May 09, 2025 2:25pm Summary Purpose Family History No Family History Records FoundNo Family History Records Found Additional Source Comments Source Comments (unrecognize d section and content) In the event this informatio n is protected by the Federal Confidentiality of Alcohol and Drug Abuse Patient Records regulations: The Federal rules restrict any use of the information to criminally investigate or prosecute any alcohol or drug abuse patient.[facility] the event this information is protected by the Federal Confidentiality of Alcohol and Drug Abuse Patient Records regulations: The Federal rules restrict any use of the information to criminally investigate or prosecute any alcohol or drug abuse patient.[facility] the event this information is protected by the Federal Confidentiality of Alcohol and Drug Abuse Patient Records regulations: The Federal rules restrict any use of the information to criminally investigate or prosecute any alcohol or drug abuse patient.[facility] Center[facility] the event this information is protected by the Federal Confidentiality of Alcohol and Drug Abuse Patient Records regulations: The Federal rules restrict any use of the information to criminally investigate or prosecute any alcohol or drug abuse patient.[facility] Center[facility] the event this information is protected by the Federal Confidentiality of Alcohol and Drug Abuse Patient Records regulations: The Federal rules restrict any use of the information to criminally investigate or prosecute any alcohol or drug abuse patient.[facility] the event this information is protected by the Federal Confidentiality of Alcohol and Drug Abuse Patient Records regulations: The Federal rules restrict any use of the information to criminally investigate or prosecute any alcohol or drug abuse patient.[facility] Reason for Visit (unrecogniz ed section and content) Reason Comments Well Woman Reason Comments Discussion tubal Reason Comments Schedule Surgery Reason Comments Pre-Op Exam Care Teams (unrecognized sec tion and content) Team Status: Active Member Role/Relationship Status Dates No Primary Care Physician Primary Care Provider Active Team Status: Inactive Member Role/Relationship Status Dates No Primary Care Physician Primary Care Provider Active Start: May 09, 2025 End: May 09, 2025 Dr. Elmer Noel , DO Emergency Provider Active Start: May 09, 2025 End: May 09, 2025 Goals (unrecognized section and content) Goals may be documented in a n alternate section INFORMATION SOURCE (unrecogn ized section and content) DATE CREATED AUTHOR 05/16/2025 [facility] DATE CREATED AUTHOR AUTHOR'S ORGANIZ ATION 07/19/[address] [facility] FOR RECORDS PERTAINING TO PATIENTS WHO ARE OR HAVE BEEN ENROLLED IN A CHEMICAL DEPENDENCY/SUBSTANCEABUSE PROGRAM, SOME INFORMATION MAY BE OMITTED. This clinical summary was aggregated from multiple sources. Caution should be exercised in using it in the provision of clinical care. This summary normalizes information from multiple sources, and as a consequence, information in this document may materially change the coding, format and clinical context of patient data. In addition, data may be omitted in some cases. CLINICAL DECISIONS SHOULD BE BASED ON THE PRIMARY CLINICAL RECORDS. [employer] [facility]. provides no warranty or guarantee of the accuracy or completeness of information in this document.
[2025-09-17 01:30] LABS: Internal QC Validated? YES +Cl - CLEAR BKGD; Pregnancy, Serum, hCG Quali. NEGATIVE Negative
[2025-09-17 01:31] LABS: Differential Indicated SCAN CRITERIA MET
[2025-09-17 01:35] LABS: Mucous, Urine 3+ /hpf (<or=2+); Red Blood Cells-Urine 0-5 SEEN /hpf (0-5); Squamous Epithelial Cells - UA 5-10 SEEN /hpf (5-10)
[2025-09-17 01:42] LABS: Lipase 17 U/L (13-75)
[2025-09-17 01:45] LABS: AST(SGOT) 28 U/L (<=31); Alanine Aminotransfer ALT/SGPT 16 U/L (<=34); Albumin, Serum 4.1 g/dL (3.5-5.0); Alkaline Phosphatase 40 U/L (35-104); Anion Gap 13 (5-15); BUN 11 mg/dL (4-19); BUN/Creat Ratio 12.4 RATIO (10-20); Calcium,Total 8.8 mg/dL (7.6-11.0); Carbon Dioxide 23.5 mmol/L (21.0-32.0); Chloride 102 mmol/L (98-108); Estimated Creatinine Clearance 90.68 ml/min (50-250); Globulin 2.7 g/dL (2.2-4.2); Glucose 119 mg/dL (70-99); Potassium 3.8 mmol/L (3.3-5.1)
[2025-09-17] MEDS: 0.9% Normal Saline (1000mL) 1,000 ML 999 ML IV (01:45)
[2025-09-17 02:04] LABS: Differential Comment SCANNED
[2025-09-17 02:27] VITALS: BP 122/74; PULSE 105; RESP 18; O2SAT 100
[2025-09-17 03:17] VITALS: BP 102/62; PULSE 91; RESP 18; TEMP 36.6; O2SAT 99
== END 2025-09-17 03:18 | disposition home or self-care (01) ==
PROVIDERS: Emergency Provider Emergency Medicine; Visit Provider Emergency Medicine
DX: R10.A0 Flank pain, unspecified side (principal); R11.2 Nausea with vomiting, unspecified; Z87.891 Personal history of nicotine dependence; D72.829 Elevated white blood cell count, unspecified
CPT/HCPCS: 74177; 80053; 81001; 83690; 84703; 85025; 96361; 96374; 96375; 96376; 99282; Q9967; A4216; J2405